=== PATIENT | male | born 1960 | race American Indian/Alaskan Native ===

== ENCOUNTER 2016-10-27 08:22 | Inpatient (IN) | payer MEDICAID ==
[2016-10-27 09:09] LABS: Hematocrit 40.3 % (35.5-45.6); Mean Corpuscular HGB Conc 32 % (32-34); Mean Corpuscular Hemoglobin 28 pg (28-32); Mean Corpuscular Volume 88 fl (84-94); Platelet Count 197 K/mm3 (140-440); Red Blood Count 4.58 M/mm3 (3.65-5.03); Red Cell Distribution Width 14.2 % (13.2-15.2); White Blood Count 4.8 K/mm3 (4.5-11.0)
--- NOTE | 2016-10-27 09:20 | XRay Report ---
PORTABLE CHEST INDICATION: Shortness of breath. COMPARISON: 10/11/2016 FINDINGS: Portable, frontal chest radiograph again demonstrates normal cardiomediastinal silhouette and clear lungs, allowing for the difference in technique. Approximately 7 mm nipple shadow again projects over the left lower lung zone. EKG leads. Stable bones. CONCLUSION: No acute chest process or significant interval change, as described. Thank you for the opportunity to participate in this patient's care.
[2016-10-27 09:29] LABS: Anion Gap 15 mmol/L; BUN/Creatinine Ratio 8.57; Blood Urea Nitrogen 6 mg/dL (9-20); Calcium 8.2 mg/dL (8.4-10.2); Carbon Dioxide 30 mmol/L (22-30); Chloride 94.8 mmol/L (98-107); Glucose 208 mg/dL (75-100); Potassium 4.1 mmol/L (3.6-5.0); Sodium 136 mmol/L (137-145)
[2016-10-27 09:42] LABS: Basophils % (Manual) 0 % (0.0-1.8); Blastocytes % (Manual) 0 %; Diff Status Complete; Poikilocytosis 1+; Stomatocytes 1+
[2016-10-27] MEDS ORDERED: PROVENTIL IH ONE (10:22)
[2016-10-27] MEDS ORDERED: ATROVENT IH ONE (10:22)
--- NOTE | 2016-10-27 10:46 | Admit Criteria Form ---
Admission Criteria Documentation: RESPIRATORY FAILURE GRG Clinical Indications for Admission to Inpatient Care (Place 'X' for any and all applicable criteria): Hospital admission is needed for appropriate care of the patient because of acute respiratory failure or insufficiency as indicated by ANY ONE of the following(1)(2)(3)(4)(5)(6)(7)(8): [X]I. Mechanical ventilation needed (acute invasive or noninvasive) [ ]II. Severe ventilation deficit as indicated by ANY ONE of the following (9) [ ]a) Respiratory acidosis (pH less than 7.32 and partial pressure of carbon dioxide greater than 40 mm Hg (5.3 kPa)) [ ]b) Partial pressure of carbon dioxide greater than 44 mm Hg (5.9 kPa ) (new) [ ]c) Airflow measurements less than 25% of predicted (eg, peak expiratory flow rate less than 100 L/minute) [ ]d) Forced vital capacity less than 15 mL/kg of ideal body weight, or 50% decrease in vital capacity from baseline [ ]III. Noncardiac pulmonary edema not resolving with rapid emergency treatment (8) [ ]IV. Severe respiratory distress as indicated by ANY ONE of the following: [ ]a) Severe tachypnea (respiratory rate greater than 30, greater than 45 for 6-month-old, greater than 60 for ) [ ]b) Severe hypoxemia (partial pressure of oxygen less than 50 mm Hg ( 6.7 kPa) on greater than 50% oxygen or partial pressure of oxygen to FIO2 ratio less than 200) [ ]c) Mental status deterioration from respiratory disease [ ]V. Airway obstruction or inadequate protection [A](10)(11) The original [employer] content created by [employer] has been revised. The portions of the content which have been revised are identified through the use of italic text or in bold, and [employer] has neither reviewed nor approved the modified material. All other unmodified content is copyright [employer]. Please see references footnoted in the original [employer] edition 2016 Admission Criteria Met: Yes
--- NOTE | 2016-10-27 11:14 | Emergency Department Report ---
HPI - General Chief Complaint: Dyspnea/Respdistress Time Seen by Provider: 10/27/16 09:31 - HPI HPI: Chief complaint: Shortness of breath and chest pain HPI: Patient is a 55-year-old -[place] male with a history of hypertension, COPD and schizophrenia who was brought in by EMS with a complaint of shortness of breath and chest pain. EMS stated that patient's pulse ox was 76% on room air upon their arrival. Patient states he ran out of his albuterol first nebulizer last night and became short of breath. Patient states he's been having chest pain substernal it's worse on breathing and coughing for the last 2 weeks. He describes it as sharp. Patient was admitted to the hospital for COPD exacerbation month ago and did not get his prescriptions filled as an outpatient. Patient lives at [facility] to his personal nursing home and he states no one has filled his prescriptions. Patient states he has a dry cough but no fever. The patient denies nausea, vomiting or diarrhea. Mode of arrival: EMS Source: Patient old chart Began: During the night Duration: Continuous Context: See above Quality: See above Severity: 7 out of 10 Improved with: See above Worsened with: See above Associated signs and symptoms: See above ED Past Medical Hx - Past Medical History Hx Hypertension: Yes Hx Heart Attack/AMI: Yes Hx Congestive Heart Failure: Yes Hx Seizures: Yes (2 wks ago) Hx Psychiatric Treatment: Yes (schizophrenia) Hx Asthma: Yes Hx COPD: Yes Additional medical history: "NERVOUS BREAKDOWN". DRUG USE - Surgical History Additional Surgical History: abd surgery (from swallowing spark plugs) - Social History Smoking Status: Current Every Day Smoker Substance Use Type: None - Medications Home Medications: Home Medications Medication Instructions Recorded Confirmed Last Taken Type Albuterol Sulfate [Ventolin HFA] 2 puff IH Q4H PRN #2 pump 10/13/16 10/27/16 Unknown Rx Ipratropium/Albuterol Sulfate 1 ampul IH TID #30 ampul.neb 10/13/16 10/27/16 Unknown Rx [Duoneb 0.5 mg-3 mg/3 ml Soln] Levofloxacin [Levaquin TAB] 750 mg PO Q24HR #6 tablet 10/13/16 10/27/16 Unknown Rx Prednisone [predniSONE 5 mg (6-Day 5 mg PO .TAPER #1 tab.ds.pk 10/13/16 Unknown Rx Pack, 21 Tabs)] ED Review of Systems ROS: Stated complaint: SHAYY Other details as noted in HPI ROS Constitutional: No fever ENT: No uri symptoms Cardiovascular: chest pain Respiratory: See HPI GI: No nausea vomiting or diarrhea : No dysuria frequency or urgency, Skin: No rash Neuro: No focal weakness or numbness Psych: Schizophrenia Fran/lymph: No edema Physical Exam - Physical Exam Vital Signs: Vital Signs 10/27/16 10/27/16 10/27/16 08:30 08:33 08:42 Temperature 98.3 F Pulse Rate 115 H Respiratory 19 Rate Blood Pressure 198/165 198/65 Blood Pressure 198/165 [Right] O2 Sat by Pulse 97 95 Oximetry 10/27/16 10/27/16 08:55 09:01 Temperature Pulse Rate 101 H 100 H Respiratory 21 23 Rate Blood Pressure 198/165 198/165 Blood Pressure [Right] O2 Sat by Pulse 95 97 Oximetry Physical Exam: GENERAL: The patient is well-developed well-nourished . Patient on BiPAP HEENT: Normocephalic. Atraumatic. Extraocular motions are intact. Patient has moist mucous membranes. NECK: Supple. No meningitic signs are noted. There is no adenopathy noted. CHEST/LUNGS: Diminished throughout with expiratory wheezes. There is no respiratory distress noted. HEART/CARDIOVASCULAR: Regular. There is no tachycardia. There is no gallop rub or murmur. ABDOMEN: Abdomen is soft, nontender. Patient has normal bowel sounds. There is no abdominal distention. SKIN: There is no rash. There is no edema. There is no diaphoresis. NEURO: The patient is awake, alert, and oriented. The patient is cooperative. The patient has no focal neurologic deficits. The patient has normal speech. MUSCULOSKELETAL: There is no tenderness or deformity. There is no limitation range of motion. There is no evidence of acute injury. ED Course Vital Signs 10/27/16 10/27/16 10/27/16 08:30 08:33 08:42 Temperature 98.3 F Pulse Rate 115 H Respiratory 19 Rate Blood Pressure 198/165 198/65 Blood Pressure 198/165 [Right] O2 Sat by Pulse 97 95 Oximetry 10/27/16 10/27/16 08:55 09:01 Temperature Pulse Rate 101 H 100 H Respiratory 21 23 Rate Blood Pressure 198/165 198/165 Blood Pressure [Right] O2 Sat by Pulse 95 97 Oximetry - Reevaluation(s) Reevaluation #1: 10/27/16 11:15 Prior to admission the patient was given albuterol, Solu-Medrol and 2 g of mag sulfate. The emergency department he was placed on BiPAP and given another nebulizer treatment. Reexamination shows the patient is still having diminished air flow and expiratory wheezes. Pulse ox 1 BiPAP is 99%. Patient will be admitted to the hospitalist. ED Medical Decision Making - Lab Data Result diagrams: 10/27/16 08:57 10/27/16 08:57 Laboratory Tests 10/27/16 08:57 Calcium 8.2 L Troponin T < 0.010 - EKG Data -: EKG Interpreted by Me EKG shows normal: sinus rhythm Rate: tachycardia (104) - EKG Data When compared to previous EKG there are: no significant change Interpretation: other (right axis, early repolarization) - Radiology Data Radiology results: report reviewed (chest x-ray shows no acute process.) Critical care attestation.: If time is entered above; I have spent that time in minutes in the direct care of this critically ill patient, excluding procedure time. ED Disposition Clinical Impression: Acute respiratory failure with hypoxia, COPD with acute exacerbation Chest pain Qualifiers: Chest pain type: unspecified Qualified Code(s): R07.9 - Chest pain, unspecified Disposition: OP ADMITTED IP TO THIS HOSP Is pt being admited?: Yes Does the pt Need Aspirin: Yes Condition: Fair Instructions: Chronic Obstructive Pulmonary Disease (ED), Chest Pain (ED) Time of Disposition: 11:09 (admit to the hospitalist)
[2016-10-27] MEDS ORDERED: ASPIRIN PO ONE (11:19)
[2016-10-27] MEDS ORDERED: PROAIR IH PRN (11:19)
[2016-10-27] MEDS ORDERED: MILK OF MAGNESIA PO PRN (11:20)
[2016-10-27] MEDS ORDERED: DULCOLAX PR PRN (11:20)
[2016-10-27] MEDS ORDERED: ZOFRAN IV PRN (11:20)
[2016-10-27] MEDS ORDERED: TYLENOL PO PRN (11:20)
[2016-10-27 12:29] LABS: Creatine Kinase MB 1.7 ng/mL (0.0-4.0)
[2016-10-27 12:30] LABS: Creatine Kinase 49 units/L (55-170)
[2016-10-27] MEDS ORDERED: D50W (25GM) IV PRN (12:31)
--- NOTE | 2016-10-27 12:37 | History and Physical Report ---
History of Present Illness Date of examination: 10/27/16 Date of admission: 10/27/16 Chief complaint: Shortness of breath History of present illness: Patient is a 55-year-old -[place] male with a history of hypertension, COPD and schizophrenia who was brought in by EMS with a complaint of shortness of breath and chest pain. The patient reports that she has been a shortness of breath has been going on for about 2 weeks. The chest and substernal rates the pain 3/10 intensity discharged nonradiating. He denies aggression associated palpitation, diaphoresis. On EMS arrival he was noted to have a pulse ox of 76% . He reports that he ran out of his nebulizer. Pupils are he's also having cough in the past 2 weeks with no production. He is a resident of [facility] home was stated that his medications were not refilled. He denies nausea, vomiting or diarrhea, fever, bright red blood per rectum, hemoptysis. On on Arrival to the ER he was placed on BiPAP. ROS Constitutional: No fever, fatigue or weight loss. Skin: No rash. Eyes: No recent vision problems or eye pain. ENT: No congestion, ear pain, or sore throat. Endocrine: No thyroid problems. Cardiovascular: Chest pain Respiratory: cough, shortness of breath, but no congestion, or wheezing. Gastrointestinal: No abdominal pain, nausea, vomiting, or diarrhea. Genitourinary: No dysuria. Musculoskeletal: No joint swelling. Neurologic: No seizures. Hematologic: No unusual bruising or bleeding. Psychiatric: No psychiatric problems, hallucinations or depression. All other systems reviewed and otherwise negative. Past History Past Medical History: CAD, COPD, heart failure, hypertension, other (asthma, schizophrenia) Past Surgical History: bowel surgery (from swallowing blocks) Social history: smoking, full code, other (lives in a personal [facility]) Family history: no significant family history Medications and Allergies Allergies Allergy/AdvReac Type Severity Reaction Status Date / Time No Known Allergies Allergy Verified 07/31/15 09:32 Home Medications Medication Instructions Recorded Confirmed Last Taken Type Albuterol Sulfate [Ventolin HFA] 2 puff IH Q4H PRN #2 pump 10/13/16 10/27/16 Unknown Rx Ipratropium/Albuterol Sulfate 1 ampul IH TID #30 ampul.neb 10/13/16 10/27/16 Unknown Rx [Duoneb 0.5 mg-3 mg/3 ml Soln] Levofloxacin [Levaquin TAB] 750 mg PO Q24HR #6 tablet 10/13/16 10/27/16 Unknown Rx Prednisone [predniSONE 5 mg (6-Day 5 mg PO .TAPER #1 tab.ds.pk 10/13/16 Unknown Rx Pack, 21 Tabs)] Active Meds: Active Medications Acetaminophen (Tylenol) 650 mg PO Q4H PRN PRN Reason: Pain MILD(1-3)/Fever >100.5/JIMENES Albuterol (Proair) 2 puff IH Q4H PRN PRN Reason: Shortness Of Breath Albuterol/Ipratropium (Duoneb 0.5 Mg-3 Mg/3 Ml Soln) 1 ampul IH TID [place] Arformoterol Tartrate (Brovana Nebu) 15 mcg IH Q12HRT [place] Bisacodyl (Dulcolax) [address] QDAY PRN PRN Reason: Constipation unrelieved by MOM Budesonide (Pulmicort) 0.5 mg IH Q12HRT [place] Dextrose (D50w (25gm)) 50 ml IV PRN PRN PRN Reason: Hypoglycemia Heparin Sodium (Porcine) (Heparin) 5,000 unit SUB-Q Q8HR [place]AWNEE Insulin Aspart (Novolog) 0 units SUB-Q ACHS [place] PRN Reason: Protocol Magnesium Hydroxide (Milk Of Magnesia) 30 ml PO Q4H PRN PRN Reason: Constipation Methylprednisolone Sodium Succinate (Solu-Medrol) 80 mg IV Q8HR [place] Ondansetron HCl (Zofran) 4 mg IV Q8H PRN PRN Reason: N/V unrelieved by Reglan Exam - Physical Exam Narrative exam: VITAL SIGNS: Reviewed. GENERAL: The patient appeared well nourished and normally developed. on BiPAP Vital signs as documented. HEAD: No signs of head trauma. EYES: Pupils are equal. Extraocular motions intact. EARS: Hearing grossly intact. MOUTH: Oropharynx is normal. NECK: No adenopathy, no JVD. CHEST: Chest with respiratory wheezes bilaterally CARDIAC: Regular rate and rhythm. S1 and S2, without murmurs, gallops, or rubs. VASCULAR: No Edema. Peripheral pulses normal and equal in all extremities. ABDOMEN: Soft, without detectable tenderness. No sign of distention. No rebound or guarding, and no masses palpated. Bowel Sounds normal. MUSCULOSKELETAL: Good range of motion of all major joints. Extremities without clubbing, cyanosis or edema. NEUROLOGIC EXAM: Alert and oriented x 3. No focal sensory or strength deficits. Speech normal. Follows commands. PSYCHIATRIC: Mood normal. SKIN: No rash or lesions. - Constitutional Vitals: Temp Pulse Resp BP Pulse Ox 98.3 F 100 H 23 198/165 97 10/27/16 08:42 10/27/16 09:01 10/27/16 09:01 10/27/16 09:01 10/27/16 09:01 Results - Labs CBC & Chem 7: 10/27/16 08:57 10/27/16 08:57 Labs: Laboratory Last Values WBC 4.8 K/mm3 (4.5-11.0) 10/27/16 08:57 RBC 4.58 M/mm3 (3.65-5.03) 10/27/16 08:57 Hgb 13.0 gm/dl (11.8-15.2) 10/27/16 08:57 Hct 40.3 % (35.5-45.6) 10/27/16 08:57 MCV 88 fl (84-94) 10/27/16 08:57 MCH 28 pg (28-32) 10/27/16 08:57 MCHC 32 % (32-34) 10/27/16 08:57 RDW 14.2 % (13.2-15.2) 10/27/16 08:57 Plt Count 197 K/mm3 (140-440) 10/27/16 08:57 Morris % (Auto) Product Management Analyst 10/27/16 08:57 Add Manual Diff Complete 10/27/16 08:57 Total Counted 100 10/27/16 08:57 Seg Neuts % (Manual) 70.0 % (40.0-70.0) 10/27/16 08:57 Band Neutrophils % 0 % 10/27/16 08:57 Lymphocytes % (Manual) 17.0 % (13.4-35.0) 10/27/16 08:57 Reactive Lymphs % (Man) 0 % 10/27/16 08:57 Monocytes % (Manual) 10.0 % (0.0-7.3) H 10/27/16 08:57 Eosinophils % (Manual) 3.0 % (0.0-4.3) 10/27/16 08:57 Basophils % (Manual) 0 % (0.0-1.8) 10/27/16 08:57 Metamyelocytes % 0 % 10/27/16 08:57 Myelocytes % 0 % 10/27/16 08:57 Promyelocytes % 0 % 10/27/16 08:57 Blast Cells % 0 % 10/27/16 08:57 Nucleated RBC % Not Reportable 10/27/16 08:57 Seg Neutrophils # Man 3.4 K/mm3 (1.8-7.7) 10/27/16 08:57 Band Neutrophils # 0.0 K/mm3 10/27/16 08:57 Lymphocytes # (Manual) 0.8 K/mm3 (1.2-5.4) L 10/27/16 08:57 Abs React Lymphs (Man) 0.0 K/mm3 10/27/16 08:57 Monocytes # (Manual) 0.5 K/mm3 (0.0-0.8) 10/27/16 08:57 Eosinophils # (Manual) 0.1 K/mm3 (0.0-0.4) 10/27/16 08:57 Basophils # (Manual) 0.0 K/mm3 (0.0-0.1) 10/27/16 08:57 Metamyelocytes # 0.0 K/mm3 10/27/16 08:57 Myelocytes # 0.0 K/mm3 10/27/16 08:57 Promyelocytes # 0.0 K/mm3 10/27/16 08:57 Blast Cells # 0.0 K/mm3 10/27/16 08:57 WBC Morphology Not Reportable 10/27/16 08:57 Hypersegmented Neuts Not Reportable 10/27/16 08:57 Hyposegmented Neuts Not Reportable 10/27/16 08:57 Hypogranular Neuts Not Reportable 10/27/16 08:57 Smudge Cells Not Reportable 10/27/16 08:57 Toxic Granulation Not Reportable 10/27/16 08:57 Toxic Vacuolation Not Reportable 10/27/16 08:57 Dohle Bodies Not Reportable 10/27/16 08:57 Pelger-Huet Anomaly Not Reportable 10/27/16 08:57 Brooks Rods Not Reportable 10/27/16 08:57 Platelet Estimate Appears normal 10/27/16 08:57 Clumped Platelets Not Reportable 10/27/16 08:57 Plt Clumps, EDTA Not Reportable 10/27/16 08:57 Large Platelets Not Reportable 10/27/16 08:57 Giant Platelets Not Reportable 10/27/16 08:57 Platelet Satelliting Not Reportable 10/27/16 08:57 Plt Morphology Comment Not Reportable 10/27/16 08:57 RBC Morphology Not Reportable 10/27/16 08:57 Dimorphic RBCs Not Reportable 10/27/16 08:57 Polychromasia Not Reportable 10/27/16 08:57 Hypochromasia Not Reportable 10/27/16 08:57 Poikilocytosis 1+ 10/27/16 08:57 Anisocytosis Not Reportable 10/27/16 08:57 Microcytosis Not Reportable 10/27/16 08:57 Macrocytosis Not Reportable 10/27/16 08:57 Spherocytes Not Reportable 10/27/16 08:57 Pappenheimer Bodies Not Reportable 10/27/16 08:57 Sickle Cells Not Reportable 10/27/16 08:57 Target Cells Not Reportable 10/27/16 08:57 Tear Drop Cells Not Reportable 10/27/16 08:57 Ovalocytes Not Reportable 10/27/16 08:57 Stomatocytes 1+ 10/27/16 08:57 Helmet Cells Not Reportable 10/27/16 08:57 Garcia-Rowland Bodies Not Reportable 10/27/16 08:57 Pacolet Rings Not Reportable 10/27/16 08:57 Santy Cells Not Reportable 10/27/16 08:57 Bite Cells Not Reportable 10/27/16 08:57 Crenated Cell Not Reportable 10/27/16 08:57 Elliptocytes Not Reportable 10/27/16 08:57 Acanthocytes (Spur) Not Reportable 10/27/16 08:57 Rouleaux Not Reportable 10/27/16 08:57 Hemoglobin C Crystals Not Reportable 10/27/16 08:57 Schistocytes Not Reportable 10/27/16 08:57 Malaria parasites Not Reportable 10/27/16 08:57 Yogi Bodies Not Reportable 10/27/16 08:57 Hem Pathologist Commnt No 10/27/16 08:57 D-Dimer 199.29 ng/mlDDU (0-234) 10/27/16 11:59 Sodium 136 mmol/L (137-145) L 10/27/16 08:57 Potassium 4.1 mmol/L (3.6-5.0) 10/27/16 08:57 Chloride 94.8 mmol/L (98-107) L 10/27/16 08:57 Carbon Dioxide 30 mmol/L (22-30) 10/27/16 08:57 Anion Gap 15 mmol/L 10/27/16 08:57 BUN 6 mg/dL (9-20) L 10/27/16 08:57 Creatinine 0.7 mg/dL (0.8-1.5) L 10/27/16 08:57 Estimated GFR > 60 ml/min 10/27/16 08:57 BUN/Creatinine Ratio 8.57 % 10/27/16 08:57 Glucose 208 mg/dL (75-100) H 10/27/16 08:57 Calcium 8.2 mg/dL (8.4-10.2) L 10/27/16 08:57 Total Creatine Kinase 49 units/L (55-170) L 10/27/16 12:03 CK-MB (CK-2) 1.7 ng/mL (0.0-4.0) 10/27/16 12:03 CK-MB (CK-2) Rel Index 3.4 (0-4) 10/27/16 12:03 Troponin T < 0.010 ng/mL (0.00-0.029) 10/27/16 12:03 - Imaging and Cardiology EKG: image reviewed (normal sinus rhythm on personal review) Chest x-ray: image reviewed (no acute pathology noted) Assessment and Plan Assessment and plan: Patient is a 55-year-old -[place] male with a history of hypertension, COPD and schizophrenia who was brought in by EMS with a complaint of shortness of breath and chest pain. The patient reports that she has been a shortness of breath has been going on for about 2 weeks. The chest and substernal rates the pain 3/10 intensity discharged nonradiating. He denies aggression associated palpitation, diaphoresis. On EMS arrival he was noted to have a pulse ox of 76% . He reports that he ran out of his nebulizer. Pupils are he's also having cough in the past 2 weeks with no production. He is a resident of [facility] was stated that his medications were not refilled. He denies nausea, vomiting or diarrhea, fever, bright red blood per rectum, hemoptysis. On on Arrival to the ER he was placed on BiPAP. * Acute and chronic hypoxic respiratory failure * Continue BiPAP, nebulizer treatment, oxygen per protocol * COPD exacerbation * Was the high-dose systemic steroids LABA, and CAROLE * Atypical chest pain likely costochondritis * Aspirin, morphine when necessary, check lipid profile, statin. Check cardiac enzymes. No indication of stresses at this time * Schizophrenia * Resume home medications once obtained * Hypertension * Controlled continue home medications * DVT and GI prophylaxis * The high probability of a clinically significant, sudden or life threatening deterioration of the [pulmonary, cardiac] system(s) required my full and direct attention, intervention and personal management. The aggregate critical care time was [35] minutes. This time is in addition to time spent performing reported procedures but includes the following: [x] Data Review and interpretation [x] Patient assessment and monitoring of vital signs [x] Documentation [x] Medication orders and management Advance Directives: Yes Plan of care discussed with patient/family: Yes
[2016-10-27] MEDS: HEPARIN SUB-Q SCH ×2 (14:07→23:03)
[2016-10-27] MEDS: DUONEB 0.5 MG-3 MG/3 ML SOLN IH SCH ×2 (14:54→21:00)
[2016-10-27] MEDS: NOVOLOG SUB-Q SCH ×2 (17:01→23:21)
[2016-10-27 18:20] LABS: Creatine Kinase MB 2.5 ng/mL (0.0-4.0)
[2016-10-27 18:21] LABS: Creatine Kinase 72 units/L (55-170)
[2016-10-28] MEDS: PULMICORT IH SCH ×3 (00:16→20:26)
[2016-10-28] MEDS: BROVANA NEBU IH SCH ×3 (00:16→20:26)
[2016-10-28] MEDS: HEPARIN SUB-Q SCH ×3 (06:34→21:40)
[2016-10-28] MEDS: NOVOLOG SUB-Q SCH ×4 (08:15→21:44)
[2016-10-28 10:38] LABS: Basophils % (Auto) 0.4 % (0.0-1.8); Eosinophils % (Auto) 0.3 % (0.0-4.3); Hematocrit 38.3 % (35.5-45.6); Hemoglobin 12.1 gm/dl (11.8-15.2); Mean Corpuscular HGB Conc 32 % (32-34); Mean Corpuscular Hemoglobin 28 pg (28-32); Mean Corpuscular Volume 88 fl (84-94); Platelet Count 196 K/mm3 (140-440); Red Blood Count 4.33 M/mm3 (3.65-5.03); Red Cell Distribution Width 14.3 % (13.2-15.2); White Blood Count 11.1 K/mm3 (4.5-11.0)
[2016-10-28 11:01] LABS: Anion Gap 16 mmol/L; BUN/Creatinine Ratio 8.33; Blood Urea Nitrogen 5 mg/dL (9-20); Calcium 8.3 mg/dL (8.4-10.2); Carbon Dioxide 31 mmol/L (22-30); Chloride 96.7 mmol/L (98-107); Glucose 218 mg/dL (75-100); Potassium 5.1 mmol/L (3.6-5.0); Sodium 139 mmol/L (137-145)
[2016-10-28] MEDS: DUONEB 0.5 MG-3 MG/3 ML SOLN IH SCH ×3 (11:17→20:26)
[2016-10-28] MEDS: ZITHROMAX PO SCH (18:20)
--- NOTE | 2016-10-28 20:23 | Progress Note ---
Assessment and Plan Assessment and plan: 1. Acute on chronic respiratory failure Secondary to COPD Treating underlying condition 2. COPD exacerbation Continue IV corticosteroids, but decreased dose; add antibiotic; continue inhaled bronchodilators, supplemental oxygen, BiPAP as needed 3. Atypical chest pain Likely costochondritis 4. Hyperglycemia Likely secondary to corticosteroid use Accu-Cheks and SSI 5. History of hypertension Not on any medications at home BP within normal limits on no meds Monitor 6. Hyperkalemia Mild, recheck in a.m. 7. Schizophrenia 8. DVT prophylaxis Heparin subcutaneous History Interval history: Complaining of difficulty breathing, short of breath Hospitalist Physical - Constitutional Vitals: Temp Pulse Resp BP Pulse Ox 98.2 F 97 H 22 102/57 95 10/28/16 15:34 10/28/16 15:34 10/28/16 15:34 10/28/16 15:34 10/28/16 15:34 General appearance: Present: mild distress, well-nourished - EENT Eyes: Present: PERRL, EOM intact. Absent: scleral icterus, conjunctival injection - Neck Neck: Present: supple, normal ROM. Absent: masses or JVD - Respiratory Respiratory effort: normal (at rest) Respiratory: bilateral: diminished, wheezing, negative: rales, rhonchi - Cardiovascular Rhythm: regular Heart Sounds: Present: S1 & S2. Absent: systolic murmur - Extremities Extremities: no ischemia - Abdominal General gastrointestinal: soft, non-tender, non-distended, normal bowel sounds - Integumentary Integumentary: Present: warm, dry. Absent: jaundice, rash - Psychiatric Psychiatric: cooperative - Neurologic Neurologic: CNII-XII intact, no focal deficits Results - Labs CBC & Chem 7: 10/28/16 10:07 10/28/16 10:07 Labs: Laboratory Last Values WBC 11.1 K/mm3 (4.5-11.0) H 10/28/16 10:07 RBC 4.33 M/mm3 (3.65-5.03) 10/28/16 10:07 Hgb 12.1 gm/dl (11.8-15.2) 10/28/16 10:07 Hct 38.3 % (35.5-45.6) 10/28/16 10:07 MCV 88 fl (84-94) 10/28/16 10:07 MCH 28 pg (28-32) 10/28/16 10:07 MCHC 32 % (32-34) 10/28/16 10:07 RDW 14.3 % (13.2-15.2) 10/28/16 10:07 Plt Count 196 K/mm3 (140-440) 10/28/16 10:07 Lymph % (Auto) 5.7 % (13.4-35.0) L 10/28/16 10:07 [place] % (Auto) 4.4 % (0.0-7.3) 10/28/16 10:07 Eos % (Auto) 0.3 % (0.0-4.3) 10/28/16 10:07 Baso % (Auto) 0.4 % (0.0-1.8) 10/28/16 10:07 Lymph # 0.6 K/mm3 (1.2-5.4) L 10/28/16 10:07 [place] # 0.5 K/mm3 (0.0-0.8) 10/28/16 10:07 Eos # 0.0 K/mm3 (0.0-0.4) 10/28/16 10:07 Baso # 0.0 K/mm3 (0.0-0.1) 10/28/16 10:07 Add Manual Diff Complete 10/27/16 08:57 Total Counted 100 10/27/16 08:57 Seg Neutrophils % 89.2 % (40.0-70.0) H 10/28/16 10:07 Seg Neuts % (Manual) 70.0 % (40.0-70.0) 10/27/16 08:57 Band Neutrophils % 0 % 10/27/16 08:57 Lymphocytes % (Manual) 17.0 % (13.4-35.0) 10/27/16 08:57 Reactive Lymphs % (Man) 0 % 10/27/16 08:57 Monocytes % (Manual) 10.0 % (0.0-7.3) H 10/27/16 08:57 Eosinophils % (Manual) 3.0 % (0.0-4.3) 10/27/16 08:57 Basophils % (Manual) 0 % (0.0-1.8) 10/27/16 08:57 Metamyelocytes % 0 % 10/27/16 08:57 Myelocytes % 0 % 10/27/16 08:57 Promyelocytes % 0 % 10/27/16 08:57 Blast Cells % 0 % 10/27/16 08:57 Nucleated RBC % Not Reportable 10/27/16 08:57 Seg Neutrophils # 9.9 K/mm3 (1.8-7.7) H 10/28/16 10:07 Seg Neutrophils # Man 3.4 K/mm3 (1.8-7.7) 10/27/16 08:57 Band Neutrophils # 0.0 K/mm3 10/27/16 08:57 Lymphocytes # (Manual) 0.8 K/mm3 (1.2-5.4) L 10/27/16 08:57 Abs React Lymphs (Man) 0.0 K/mm3 10/27/16 08:57 Monocytes # (Manual) 0.5 K/mm3 (0.0-0.8) 10/27/16 08:57 Eosinophils # (Manual) 0.1 K/mm3 (0.0-0.4) 10/27/16 08:57 Basophils # (Manual) 0.0 K/mm3 (0.0-0.1) 10/27/16 08:57 Metamyelocytes # 0.0 K/mm3 10/27/16 08:57 Myelocytes # 0.0 K/mm3 10/27/16 08:57 Promyelocytes # 0.0 K/mm3 10/27/16 08:57 Blast Cells # 0.0 K/mm3 10/27/16 08:57 WBC Morphology Not Reportable 10/27/16 08:57 Hypersegmented Neuts Not Reportable 10/27/16 08:57 Hyposegmented Neuts Not Reportable 10/27/16 08:57 Hypogranular Neuts Not Reportable 10/27/16 08:57 Smudge Cells Not Reportable 10/27/16 08:57 Toxic Granulation Not Reportable 10/27/16 08:57 Toxic Vacuolation Not Reportable 10/27/16 08:57 Dohle Bodies Not Reportable 10/27/16 08:57 Pelger-Huet Anomaly Not Reportable 10/27/16 08:57 [place] Rods Not Reportable 10/27/16 08:57 Platelet Estimate Appears normal 10/27/16 08:57 Clumped Platelets Not Reportable 10/27/16 08:57 Plt Clumps, EDTA Not Reportable 10/27/16 08:57 Large Platelets Not Reportable 10/27/16 08:57 Giant Platelets Not Reportable 10/27/16 08:57 Platelet Satelliting Not Reportable 10/27/16 08:57 Plt Morphology Comment Not Reportable 10/27/16 08:57 RBC Morphology Not Reportable 10/27/16 08:57 Dimorphic RBCs Not Reportable 10/27/16 08:57 Polychromasia Not Reportable 10/27/16 08:57 Hypochromasia Not Reportable 10/27/16 08:57 Poikilocytosis 1+ 10/27/16 08:57 Anisocytosis Not Reportable 10/27/16 08:57 Microcytosis Not Reportable 10/27/16 08:57 Macrocytosis Not Reportable 10/27/16 08:57 Spherocytes Not Reportable 10/27/16 08:57 Pappenheimer Bodies Not Reportable 10/27/16 08:57 Sickle Cells Not Reportable 10/27/16 08:57 Target Cells Not Reportable 10/27/16 08:57 Tear Drop Cells Not Reportable 10/27/16 08:57 Ovalocytes Not Reportable 10/27/16 08:57 Stomatocytes 1+ 10/27/16 08:57 Helmet Cells Not Reportable 10/27/16 08:57 [place] Bodies Not Reportable 10/27/16 08:57 [place] Rings Not Reportable 10/27/16 08:57 Santy Cells Not Reportable 10/27/16 08:57 Bite Cells Not Reportable 10/27/16 08:57 Crenated Cell Not Reportable 10/27/16 08:57 Elliptocytes Not Reportable 10/27/16 08:57 Acanthocytes (Spur) Not Reportable 10/27/16 08:57 Rouleaux Not Reportable 10/27/16 08:57 Hemoglobin C Crystals Not Reportable 10/27/16 08:57 Schistocytes Not Reportable 10/27/16 08:57 Malaria parasites Not Reportable 10/27/16 08:57 Yogi Bodies Not Reportable 10/27/16 08:57 Hem Pathologist Commnt No 10/27/16 08:57 D-Dimer 199.29 ng/mlDDU (0-234) 10/27/16 11:59 Sodium 139 mmol/L (137-145) 10/28/16 10:07 Potassium 5.1 mmol/L (3.6-5.0) H D 10/28/16 10:07 Chloride 96.7 mmol/L (98-107) L 10/28/16 10:07 Carbon Dioxide 31 mmol/L (22-30) H 10/28/16 10:07 Anion Gap 16 mmol/L 10/28/16 10:07 BUN 5 mg/dL (9-20) L 10/28/16 10:07 Creatinine 0.6 mg/dL (0.8-1.5) L 10/28/16 10:07 Estimated GFR > 60 ml/min 10/28/16 10:07 BUN/Creatinine Ratio 8.33 % 10/28/16 10:07 Glucose 218 mg/dL (75-100) H 10/28/16 10:07 POC Glucose 190 (70-105) H 10/28/16 17:03 Calcium 8.3 mg/dL (8.4-10.2) L 10/28/16 10:07 Total Creatine Kinase 72 units/L (55-170) 10/27/16 17:42 CK-MB (CK-2) 2.5 ng/mL (0.0-4.0) 10/27/16 17:42 CK-MB (CK-2) Rel Index 3.4 (0-4) 10/27/16 17:42 Troponin T < 0.010 ng/mL (0.00-0.029) 10/27/16 17:42 - Imaging and Cardiology Chest x-ray: image reviewed (no acute findings)
[2016-10-29] MEDS: HEPARIN SUB-Q SCH ×3 (05:29→22:52)
[2016-10-29] MEDS: BROVANA NEBU IH SCH ×2 (07:42→20:42)
[2016-10-29] MEDS: PULMICORT IH SCH ×2 (07:43→20:42)
[2016-10-29] MEDS: NOVOLOG SUB-Q SCH ×4 (08:41→23:19)
[2016-10-29] MEDS: ZITHROMAX PO SCH (10:00)
[2016-10-29] MEDS: DUONEB 0.5 MG-3 MG/3 ML SOLN IH SCH ×3 (10:02→20:42)
[2016-10-29 10:14] LABS: Blood Urea Nitrogen 8 mg/dL (9-20); Calcium 8.4 mg/dL (8.4-10.2); Carbon Dioxide 31 mmol/L (22-30); Chloride 91.5 mmol/L (98-107); Glucose 239 mg/dL (75-100); Potassium 4.6 mmol/L (3.6-5.0); Sodium 133 mmol/L (137-145)
[2016-10-29 10:16] LABS: Anion Gap 15 mmol/L
--- NOTE | 2016-10-29 18:29 | Progress Note ---
Assessment and Plan Assessment and plan: 1. Acute on chronic respiratory failure Secondary to COPD Treating underlying condition 2. COPD exacerbation Continue IV corticosteroids, antibiotic, continue inhaled bronchodilators, supplemental oxygen and BiPAP as needed 3. Atypical chest pain Likely costochondritis 4. Hyperglycemia Likely secondary to corticosteroid use Accu-Cheks and SSI 5. History of hypertension Not on any medications at home BP within normal limits on no meds Monitor 6. Hyperkalemia Mild Resolved with no intervention 7. Schizophrenia 8. DVT prophylaxis Heparin subcutaneous History Interval history: No significant change, still complaining of shortness of breath Hospitalist Physical - Constitutional Vitals: Temp Pulse Resp BP Pulse Ox 98.1 F 77 24 132/86 97 10/29/16 16:35 10/29/16 16:35 10/29/16 16:35 10/29/16 16:35 10/29/16 18:18 General appearance: Present: no acute distress, well-nourished - Neck Neck: Present: supple, normal ROM. Absent: masses or JVD - Respiratory Respiratory effort: normal (at rest) Respiratory: bilateral: diminished, rhonchi, wheezing - Cardiovascular Rhythm: regular Heart Sounds: Present: S1 & S2. Absent: systolic murmur - Extremities Extremities: no ischemia - Abdominal General gastrointestinal: soft, non-tender, non-distended, normal bowel sounds - Integumentary Integumentary: Present: warm, dry. Absent: jaundice, rash - Psychiatric Psychiatric: cooperative - Neurologic Neurologic: no focal deficits Results - Labs CBC & Chem 7: 10/28/16 10:07 10/29/16 09:21 Labs: Laboratory Last Values WBC 11.1 K/mm3 (4.5-11.0) H 10/28/16 10:07 RBC 4.33 M/mm3 (3.65-5.03) 10/28/16 10:07 Hgb 12.1 gm/dl (11.8-15.2) 10/28/16 10:07 Hct 38.3 % (35.5-45.6) 10/28/16 10:07 MCV 88 fl (84-94) 10/28/16 10:07 MCH 28 pg (28-32) 10/28/16 10:07 MCHC 32 % (32-34) 10/28/16 10:07 RDW 14.3 % (13.2-15.2) 10/28/16 10:07 Plt Count 196 K/mm3 (140-440) 10/28/16 10:07 Lymph % (Auto) 5.7 % (13.4-35.0) L 10/28/16 10:07 [place] % (Auto) 4.4 % (0.0-7.3) 10/28/16 10:07 Eos % (Auto) 0.3 % (0.0-4.3) 10/28/16 10:07 Baso % (Auto) 0.4 % (0.0-1.8) 10/28/16 10:07 Lymph # 0.6 K/mm3 (1.2-5.4) L 10/28/16 10:07 [place] # 0.5 K/mm3 (0.0-0.8) 10/28/16 10:07 Eos # 0.0 K/mm3 (0.0-0.4) 10/28/16 10:07 Baso # 0.0 K/mm3 (0.0-0.1) 10/28/16 10:07 Add Manual Diff Complete 10/27/16 08:57 Total Counted 100 10/27/16 08:57 Seg Neutrophils % 89.2 % (40.0-70.0) H 10/28/16 10:07 Seg Neuts % (Manual) 70.0 % (40.0-70.0) 10/27/16 08:57 Band Neutrophils % 0 % 10/27/16 08:57 Lymphocytes % (Manual) 17.0 % (13.4-35.0) 10/27/16 08:57 Reactive Lymphs % (Man) 0 % 10/27/16 08:57 Monocytes % (Manual) 10.0 % (0.0-7.3) H 10/27/16 08:57 Eosinophils % (Manual) 3.0 % (0.0-4.3) 10/27/16 08:57 Basophils % (Manual) 0 % (0.0-1.8) 10/27/16 08:57 Metamyelocytes % 0 % 10/27/16 08:57 Myelocytes % 0 % 10/27/16 08:57 Promyelocytes % 0 % 10/27/16 08:57 Blast Cells % 0 % 10/27/16 08:57 Nucleated RBC % Not Reportable 10/27/16 08:57 Seg Neutrophils # 9.9 K/mm3 (1.8-7.7) H 10/28/16 10:07 Seg Neutrophils # Man 3.4 K/mm3 (1.8-7.7) 10/27/16 08:57 Band Neutrophils # 0.0 K/mm3 10/27/16 08:57 Lymphocytes # (Manual) 0.8 K/mm3 (1.2-5.4) L 10/27/16 08:57 Abs React Lymphs (Man) 0.0 K/mm3 10/27/16 08:57 Monocytes # (Manual) 0.5 K/mm3 (0.0-0.8) 10/27/16 08:57 Eosinophils # (Manual) 0.1 K/mm3 (0.0-0.4) 10/27/16 08:57 Basophils # (Manual) 0.0 K/mm3 (0.0-0.1) 10/27/16 08:57 Metamyelocytes # 0.0 K/mm3 10/27/16 08:57 Myelocytes # 0.0 K/mm3 10/27/16 08:57 Promyelocytes # 0.0 K/mm3 10/27/16 08:57 Blast Cells # 0.0 K/mm3 10/27/16 08:57 WBC Morphology Not Reportable 10/27/16 08:57 Hypersegmented Neuts Not Reportable 10/27/16 08:57 Hyposegmented Neuts Not Reportable 10/27/16 08:57 Hypogranular Neuts Not Reportable 10/27/16 08:57 Smudge Cells Not Reportable 10/27/16 08:57 Toxic Granulation Not Reportable 10/27/16 08:57 Toxic Vacuolation Not Reportable 10/27/16 08:57 Dohle Bodies Not Reportable 10/27/16 08:57 Pelger-Huet Anomaly Not Reportable 10/27/16 08:57 Brooks Rods Not Reportable 10/27/16 08:57 Platelet Estimate Appears normal 10/27/16 08:57 Clumped Platelets Not Reportable 10/27/16 08:57 Plt Clumps, EDTA Not Reportable 10/27/16 08:57 Large Platelets Not Reportable 10/27/16 08:57 Giant Platelets Not Reportable 10/27/16 08:57 Platelet Satelliting Not Reportable 10/27/16 08:57 Plt Morphology Comment Not Reportable 10/27/16 08:57 RBC Morphology Not Reportable 10/27/16 08:57 Dimorphic RBCs Not Reportable 10/27/16 08:57 Polychromasia Not Reportable 10/27/16 08:57 Hypochromasia Not Reportable 10/27/16 08:57 Poikilocytosis 1+ 10/27/16 08:57 Anisocytosis Not Reportable 10/27/16 08:57 Microcytosis Not Reportable 10/27/16 08:57 Macrocytosis Not Reportable 10/27/16 08:57 Spherocytes Not Reportable 10/27/16 08:57 Pappenheimer Bodies Not Reportable 10/27/16 08:57 Sickle Cells Not Reportable 10/27/16 08:57 Target Cells Not Reportable 10/27/16 08:57 Tear Drop Cells Not Reportable 10/27/16 08:57 Ovalocytes Not Reportable 10/27/16 08:57 Stomatocytes 1+ 10/27/16 08:57 Helmet Cells Not Reportable 10/27/16 08:57 [place] Bodies Not Reportable 10/27/16 08:57 [place] Rings Not Reportable 10/27/16 08:57 Santy Cells Not Reportable 10/27/16 08:57 Bite Cells Not Reportable 10/27/16 08:57 Crenated Cell Not Reportable 10/27/16 08:57 Elliptocytes Not Reportable 10/27/16 08:57 Acanthocytes (Spur) Not Reportable 10/27/16 08:57 Rouleaux Not Reportable 10/27/16 08:57 Hemoglobin C Crystals Not Reportable 10/27/16 08:57 Schistocytes Not Reportable 10/27/16 08:57 Malaria parasites Not Reportable 10/27/16 08:57 Yogi Bodies Not Reportable 10/27/16 08:57 Hem Pathologist Commnt No 10/27/16 08:57 D-Dimer 199.29 ng/mlDDU (0-234) 10/27/16 11:59 Sodium 133 mmol/L (137-145) L 10/29/16 09:21 Potassium 4.6 mmol/L (3.6-5.0) 10/29/16 09:21 Chloride 91.5 mmol/L (98-107) L 10/29/16 09:21 Carbon Dioxide 31 mmol/L (22-30) H 10/29/16 09:21 Anion Gap 15 mmol/L 10/29/16 09:21 BUN 8 mg/dL (9-20) L 10/29/16 09:21 Creatinine 0.5 mg/dL (0.8-1.5) L 10/29/16 09:21 Estimated GFR > 60 ml/min 10/29/16 09:21 BUN/Creatinine Ratio 16.00 % 10/29/16 09:21 Glucose 239 mg/dL (75-100) H 10/29/16 09:21 POC Glucose 154 (70-105) H 10/29/16 12:25 Calcium 8.4 mg/dL (8.4-10.2) 10/29/16 09:21 Total Creatine Kinase 72 units/L (55-170) 10/27/16 17:42 CK-MB (CK-2) 2.5 ng/mL (0.0-4.0) 10/27/16 17:42 CK-MB (CK-2) Rel Index 3.4 (0-4) 10/27/16 17:42 Troponin T < 0.010 ng/mL (0.00-0.029) 10/27/16 17:42
[2016-10-30] MEDS: HEPARIN SUB-Q SCH ×3 (06:30→22:00)
[2016-10-30] MEDS: ZITHROMAX PO SCH (09:15)
[2016-10-30] MEDS: NOVOLOG SUB-Q SCH ×4 (09:16→22:00)
[2016-10-30] MEDS: DUONEB 0.5 MG-3 MG/3 ML SOLN IH SCH ×3 (10:09→20:58)
[2016-10-30] MEDS: PULMICORT IH SCH ×2 (10:09→20:58)
[2016-10-30] MEDS: BROVANA NEBU IH SCH ×2 (10:10→20:58)
--- NOTE | 2016-10-30 14:57 | Progress Note ---
Assessment and Plan Assessment and plan: 1. Acute on chronic respiratory failure Secondary to COPD Treating underlying condition 2. COPD exacerbation Continue IV corticosteroids, antibiotic, continue inhaled bronchodilators, supplemental oxygen and BiPAP as needed Slow improvement Start tapering CS 3. Atypical chest pain Likely costochondritis NSAIDs 4. Hyperglycemia Likely secondary to corticosteroid use Accu-Cheks and SSI 5. History of hypertension Not on any medications at home BP within normal limits on no meds Monitor 6. Hyperkalemia Mild Resolved with no intervention 7. Schizophrenia 8. DVT prophylaxis Heparin subcutaneous History Interval history: Slightly improved, still complaining of shortness of breath and difficulty breathing Hospitalist Physical - Constitutional Vitals: Temp Pulse Resp BP Pulse Ox 98.0 F 77 20 130/76 99 10/30/16 12:47 10/30/16 14:45 10/30/16 14:45 10/30/16 12:47 10/30/16 12:47 General appearance: Present: no acute distress - EENT Eyes: Present: PERRL, EOM intact. Absent: scleral icterus, conjunctival injection ENT: clear oral mucosa, poor dentition - Neck Neck: Present: supple, normal ROM. Absent: masses or JVD - Respiratory Respiratory effort: normal Respiratory: bilateral: diminished, wheezing (expiratory wheezes), negative: rales - Cardiovascular Rhythm: regular Heart Sounds: Present: S1 & S2. Absent: systolic murmur - Extremities Extremities: no ischemia - Abdominal General gastrointestinal: soft, non-tender, non-distended, normal bowel sounds - Neurologic Neurologic: CNII-XII intact, no focal deficits Results - Labs CBC & Chem 7: 10/28/16 10:07 10/29/16 09:21 Labs: Laboratory Last Values WBC 11.1 K/mm3 (4.5-11.0) H 10/28/16 10:07 RBC 4.33 M/mm3 (3.65-5.03) 10/28/16 10:07 Hgb 12.1 gm/dl (11.8-15.2) 10/28/16 10:07 Hct 38.3 % (35.5-45.6) 10/28/16 10:07 MCV 88 fl (84-94) 10/28/16 10:07 MCH 28 pg (28-32) 10/28/16 10:07 MCHC 32 % (32-34) 10/28/16 10:07 RDW 14.3 % (13.2-15.2) 10/28/16 10:07 Plt Count 196 K/mm3 (140-440) 10/28/16 10:07 Lymph % (Auto) 5.7 % (13.4-35.0) L 10/28/16 10:07 [place] % (Auto) 4.4 % (0.0-7.3) 10/28/16 10:07 Eos % (Auto) 0.3 % (0.0-4.3) 10/28/16 10:07 Baso % (Auto) 0.4 % (0.0-1.8) 10/28/16 10:07 Lymph # 0.6 K/mm3 (1.2-5.4) L 10/28/16 10:07 [place] # 0.5 K/mm3 (0.0-0.8) 10/28/16 10:07 Eos # 0.0 K/mm3 (0.0-0.4) 10/28/16 10:07 Baso # 0.0 K/mm3 (0.0-0.1) 10/28/16 10:07 Add Manual Diff Complete 10/27/16 08:57 Total Counted 100 10/27/16 08:57 Seg Neutrophils % 89.2 % (40.0-70.0) H 10/28/16 10:07 Seg Neuts % (Manual) 70.0 % (40.0-70.0) 10/27/16 08:57 Band Neutrophils % 0 % 10/27/16 08:57 Lymphocytes % (Manual) 17.0 % (13.4-35.0) 10/27/16 08:57 Reactive Lymphs % (Man) 0 % 10/27/16 08:57 Monocytes % (Manual) 10.0 % (0.0-7.3) H 10/27/16 08:57 Eosinophils % (Manual) 3.0 % (0.0-4.3) 10/27/16 08:57 Basophils % (Manual) 0 % (0.0-1.8) 10/27/16 08:57 Metamyelocytes % 0 % 10/27/16 08:57 Myelocytes % 0 % 10/27/16 08:57 Promyelocytes % 0 % 10/27/16 08:57 Blast Cells % 0 % 10/27/16 08:57 Nucleated RBC % Not Reportable 10/27/16 08:57 Seg Neutrophils # 9.9 K/mm3 (1.8-7.7) H 10/28/16 10:07 Seg Neutrophils # Man 3.4 K/mm3 (1.8-7.7) 10/27/16 08:57 Band Neutrophils # 0.0 K/mm3 10/27/16 08:57 Lymphocytes # (Manual) 0.8 K/mm3 (1.2-5.4) L 10/27/16 08:57 Abs React Lymphs (Man) 0.0 K/mm3 10/27/16 08:57 Monocytes # (Manual) 0.5 K/mm3 (0.0-0.8) 10/27/16 08:57 Eosinophils # (Manual) 0.1 K/mm3 (0.0-0.4) 10/27/16 08:57 Basophils # (Manual) 0.0 K/mm3 (0.0-0.1) 10/27/16 08:57 Metamyelocytes # 0.0 K/mm3 10/27/16 08:57 Myelocytes # 0.0 K/mm3 10/27/16 08:57 Promyelocytes # 0.0 K/mm3 10/27/16 08:57 Blast Cells # 0.0 K/mm3 10/27/16 08:57 WBC Morphology Not Reportable 10/27/16 08:57 Hypersegmented Neuts Not Reportable 10/27/16 08:57 Hyposegmented Neuts Not Reportable 10/27/16 08:57 Hypogranular Neuts Not Reportable 10/27/16 08:57 Smudge Cells Not Reportable 10/27/16 08:57 Toxic Granulation Not Reportable 10/27/16 08:57 Toxic Vacuolation Not Reportable 10/27/16 08:57 Dohle Bodies Not Reportable 10/27/16 08:57 Pelger-Huet Anomaly Not Reportable 10/27/16 08:57 [place] Rods Not Reportable 10/27/16 08:57 Platelet Estimate Appears normal 10/27/16 08:57 Clumped Platelets Not Reportable 10/27/16 08:57 Plt Clumps, EDTA Not Reportable 10/27/16 08:57 Large Platelets Not Reportable 10/27/16 08:57 Giant Platelets Not Reportable 10/27/16 08:57 Platelet Satelliting Not Reportable 10/27/16 08:57 Plt Morphology Comment Not Reportable 10/27/16 08:57 RBC Morphology Not Reportable 10/27/16 08:57 Dimorphic RBCs Not Reportable 10/27/16 08:57 Polychromasia Not Reportable 10/27/16 08:57 Hypochromasia Not Reportable 10/27/16 08:57 Poikilocytosis 1+ 10/27/16 08:57 Anisocytosis Not Reportable 10/27/16 08:57 Microcytosis Not Reportable 10/27/16 08:57 Macrocytosis Not Reportable 10/27/16 08:57 Spherocytes Not Reportable 10/27/16 08:57 Pappenheimer Bodies Not Reportable 10/27/16 08:57 Sickle Cells Not Reportable 10/27/16 08:57 Target Cells Not Reportable 10/27/16 08:57 Tear Drop Cells Not Reportable 10/27/16 08:57 Ovalocytes Not Reportable 10/27/16 08:57 Stomatocytes 1+ 10/27/16 08:57 Helmet Cells Not Reportable 10/27/16 08:57 [place] Bodies Not Reportable 10/27/16 08:57 [place] Rings Not Reportable 10/27/16 08:57 Santy Cells Not Reportable 10/27/16 08:57 Bite Cells Not Reportable 10/27/16 08:57 Crenated Cell Not Reportable 10/27/16 08:57 Elliptocytes Not Reportable 10/27/16 08:57 Acanthocytes (Spur) Not Reportable 10/27/16 08:57 Rouleaux Not Reportable 10/27/16 08:57 Hemoglobin C Crystals Not Reportable 10/27/16 08:57 Schistocytes Not Reportable 10/27/16 08:57 Malaria parasites Not Reportable 10/27/16 08:57 Yogi Bodies Not Reportable 10/27/16 08:57 Hem Pathologist Commnt No 10/27/16 08:57 D-Dimer 199.29 ng/mlDDU (0-234) 10/27/16 11:59 Sodium 133 mmol/L (137-145) L 10/29/16 09:21 Potassium 4.6 mmol/L (3.6-5.0) 10/29/16 09:21 Chloride 91.5 mmol/L (98-107) L 10/29/16 09:21 Carbon Dioxide 31 mmol/L (22-30) H 10/29/16 09:21 Anion Gap 15 mmol/L 10/29/16 09:21 BUN 8 mg/dL (9-20) L 10/29/16 09:21 Creatinine 0.5 mg/dL (0.8-1.5) L 10/29/16 09:21 Estimated GFR > 60 ml/min 10/29/16 09:21 BUN/Creatinine Ratio 16.00 % 10/29/16 09:21 Glucose 239 mg/dL (75-100) H 10/29/16 09:21 POC Glucose 198 (70-105) H 10/30/16 11:31 Calcium 8.4 mg/dL (8.4-10.2) 10/29/16 09:21 Total Creatine Kinase 72 units/L (55-170) 10/27/16 17:42 CK-MB (CK-2) 2.5 ng/mL (0.0-4.0) 10/27/16 17:42 CK-MB (CK-2) Rel Index 3.4 (0-4) 10/27/16 17:42 Troponin T < 0.010 ng/mL (0.00-0.029) 10/27/16 17:42
[2016-10-31] MEDS: HEPARIN SUB-Q SCH ×3 (06:25→21:11)
[2016-10-31] MEDS: NOVOLOG SUB-Q SCH ×4 (07:30→21:11)
[2016-10-31] MEDS: BROVANA NEBU IH SCH ×2 (08:19→20:41)
[2016-10-31] MEDS: DUONEB 0.5 MG-3 MG/3 ML SOLN IH SCH ×3 (08:19→20:41)
[2016-10-31] MEDS: PULMICORT IH SCH ×2 (08:19→20:41)
[2016-10-31] MEDS: ZITHROMAX PO SCH (09:40)
--- NOTE | 2016-10-31 16:21 | Progress Note ---
Assessment and Plan Assessment and plan: 1. Acute on chronic respiratory failure Secondary to COPD Treating underlying condition 2. COPD exacerbation Continue IV corticosteroids, antibiotic, continue inhaled bronchodilators, supplemental oxygen and BiPAP as needed Slow improvement Tapering CS 3. Atypical chest pain Likely costochondritis NSAIDs 4. Hyperglycemia Likely secondary to corticosteroid use Accu-Cheks and SSI 5. History of hypertension Not on any medications at home BP within normal limits on no meds Monitor 6. Hyperkalemia Mild Resolved with no intervention 7. Schizophrenia 8. DVT prophylaxis Heparin subcutaneous 9. 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 Absent: scleral icterus, conjunctival injection - Neck Neck: Present: supple, normal ROM. Absent: masses or JVD - Respiratory Respiratory effort: normal Respiratory: bilateral: diminished, wheezing, negative: rales - Cardiovascular Rhythm: regular Heart Sounds: Present: S1 & S2. Absent: systolic murmur - Extremities Extremities: no ischemia - Abdominal General gastrointestinal: soft, non-tender, non-distended, normal bowel sounds - Psychiatric Psychiatric: other (slow) - Neurologic Neurologic: CNII-XII intact, no focal deficits Results - Labs CBC & Chem 7: 10/28/16 10:07 10/29/16 09:21 Labs: Laboratory Last Values WBC 11.1 K/mm3 (4.5-11.0) H 10/28/16 10:07 RBC 4.33 M/mm3 (3.65-5.03) 10/28/16 10:07 Hgb 12.1 gm/dl (11.8-15.2) 10/28/16 10:07 Hct 38.3 % (35.5-45.6) 10/28/16 10:07 MCV 88 fl (84-94) 10/28/16 10:07 MCH 28 pg (28-32) 10/28/16 10:07 MCHC 32 % (32-34) 10/28/16 10:07 RDW 14.3 % (13.2-15.2) 10/28/16 10:07 Plt Count 196 K/mm3 (140-440) 10/28/16 10:07 Lymph % (Auto) 5.7 % (13.4-35.0) L 10/28/16 10:07 [place] % (Auto) 4.4 % (0.0-7.3) 10/28/16 10:07 Eos % (Auto) 0.3 % (0.0-4.3) 10/28/16 10:07 Baso % (Auto) 0.4 % (0.0-1.8) 10/28/16 10:07 Lymph # 0.6 K/mm3 (1.2-5.4) L 10/28/16 10:07 [place] # 0.5 K/mm3 (0.0-0.8) 10/28/16 10:07 Eos # 0.0 K/mm3 (0.0-0.4) 10/28/16 10:07 Baso # 0.0 K/mm3 (0.0-0.1) 10/28/16 10:07 Add Manual Diff Complete 10/27/16 08:57 Total Counted 100 10/27/16 08:57 Seg Neutrophils % 89.2 % (40.0-70.0) H 10/28/16 10:07 Seg Neuts % (Manual) 70.0 % (40.0-70.0) 10/27/16 08:57 Band Neutrophils % 0 % 10/27/16 08:57 Lymphocytes % (Manual) 17.0 % (13.4-35.0) 10/27/16 08:57 Reactive Lymphs % (Man) 0 % 10/27/16 08:57 Monocytes % (Manual) 10.0 % (0.0-7.3) H 10/27/16 08:57 Eosinophils % (Manual) 3.0 % (0.0-4.3) 10/27/16 08:57 Basophils % (Manual) 0 % (0.0-1.8) 10/27/16 08:57 Metamyelocytes % 0 % 10/27/16 08:57 Myelocytes % 0 % 10/27/16 08:57 Promyelocytes % 0 % 10/27/16 08:57 Blast Cells % 0 % 10/27/16 08:57 Nucleated RBC % Not Reportable 10/27/16 08:57 Seg Neutrophils # 9.9 K/mm3 (1.8-7.7) H 10/28/16 10:07 Seg Neutrophils # Man 3.4 K/mm3 (1.8-7.7) 10/27/16 08:57 Band Neutrophils # 0.0 K/mm3 10/27/16 08:57 Lymphocytes # (Manual) 0.8 K/mm3 (1.2-5.4) L 10/27/16 08:57 Abs React Lymphs (Man) 0.0 K/mm3 10/27/16 08:57 Monocytes # (Manual) 0.5 K/mm3 (0.0-0.8) 10/27/16 08:57 Eosinophils # (Manual) 0.1 K/mm3 (0.0-0.4) 10/27/16 08:57 Basophils # (Manual) 0.0 K/mm3 (0.0-0.1) 10/27/16 08:57 Metamyelocytes # 0.0 K/mm3 10/27/16 08:57 Myelocytes # 0.0 K/mm3 10/27/16 08:57 Promyelocytes # 0.0 K/mm3 10/27/16 08:57 Blast Cells # 0.0 K/mm3 10/27/16 08:57 WBC Morphology Not Reportable 10/27/16 08:57 Hypersegmented Neuts Not Reportable 10/27/16 08:57 Hyposegmented Neuts Not Reportable 10/27/16 08:57 Hypogranular Neuts Not Reportable 10/27/16 08:57 Smudge Cells Not Reportable 10/27/16 08:57 Toxic Granulation Not Reportable 10/27/16 08:57 Toxic Vacuolation Not Reportable 10/27/16 08:57 Dohle Bodies Not Reportable 10/27/16 08:57 Pelger-Huet Anomaly Not Reportable 10/27/16 08:57 Brooks Rods Not Reportable 10/27/16 08:57 Platelet Estimate Appears normal 10/27/16 08:57 Clumped Platelets Not Reportable 10/27/16 08:57 Plt Clumps, EDTA Not Reportable 10/27/16 08:57 Large Platelets Not Reportable 10/27/16 08:57 Giant Platelets Not Reportable 10/27/16 08:57 Platelet Satelliting Not Reportable 10/27/16 08:57 Plt Morphology Comment Not Reportable 10/27/16 08:57 RBC Morphology Not Reportable 10/27/16 08:57 Dimorphic RBCs Not Reportable 10/27/16 08:57 Polychromasia Not Reportable 10/27/16 08:57 Hypochromasia Not Reportable 10/27/16 08:57 Poikilocytosis 1+ 10/27/16 08:57 Anisocytosis Not Reportable 10/27/16 08:57 Microcytosis Not Reportable 10/27/16 08:57 Macrocytosis Not Reportable 10/27/16 08:57 Spherocytes Not Reportable 10/27/16 08:57 Pappenheimer Bodies Not Reportable 10/27/16 08:57 Sickle Cells Not Reportable 10/27/16 08:57 Target Cells Not Reportable 10/27/16 08:57 Tear Drop Cells Not Reportable 10/27/16 08:57 Ovalocytes Not Reportable 10/27/16 08:57 Stomatocytes 1+ 10/27/16 08:57 Helmet Cells Not Reportable 10/27/16 08:57 Garcia-[place] Bodies Not Reportable 10/27/16 08:57 Berkley Rings Not Reportable 10/27/16 08:57 Santy Cells Not Reportable 10/27/16 08:57 Bite Cells Not Reportable 10/27/16 08:57 Crenated Cell Not Reportable 10/27/16 08:57 Elliptocytes Not Reportable 10/27/16 08:57 Acanthocytes (Spur) Not Reportable 10/27/16 08:57 Rouleaux Not Reportable 10/27/16 08:57 Hemoglobin C Crystals Not Reportable 10/27/16 08:57 Schistocytes Not Reportable 10/27/16 08:57 Malaria parasites Not Reportable 10/27/16 08:57 Yogi Bodies Not Reportable 10/27/16 08:57 Hem Pathologist Commnt No 10/27/16 08:57 D-Dimer 199.29 ng/mlDDU (0-234) 10/27/16 11:59 Sodium 133 mmol/L (137-145) L 10/29/16 09:21 Potassium 4.6 mmol/L (3.6-5.0) 10/29/16 09:21 Chloride 91.5 mmol/L (98-107) L 10/29/16 09:21 Carbon Dioxide 31 mmol/L (22-30) H 10/29/16 09:21 Anion Gap 15 mmol/L 10/29/16 09:21 BUN 8 mg/dL (9-20) L 10/29/16 09:21 Creatinine 0.5 mg/dL (0.8-1.5) L 10/29/16 09:21 Estimated GFR > 60 ml/min 10/29/16 09:21 BUN/Creatinine Ratio 16.00 % 10/29/16 09:21 Glucose 239 mg/dL (75-100) H 10/29/16 09:21 POC Glucose 168 (70-105) H 10/31/16 12:50 Calcium 8.4 mg/dL (8.4-10.2) 10/29/16 09:21 Total Creatine Kinase 72 units/L (55-170) 10/27/16 17:42 CK-MB (CK-2) 2.5 ng/mL (0.0-4.0) 10/27/16 17:42 CK-MB (CK-2) Rel Index 3.4 (0-4) 10/27/16 17:42 Troponin T < 0.010 ng/mL (0.00-0.029) 10/27/16 17:42
[2016-11-01] MEDS: HEPARIN SUB-Q SCH ×2 (05:55→16:21)
[2016-11-01] MEDS: PULMICORT IH SCH (08:01)
[2016-11-01] MEDS: BROVANA NEBU IH SCH (08:01)
[2016-11-01] MEDS: DUONEB 0.5 MG-3 MG/3 ML SOLN IH SCH ×2 (08:01→13:23)
[2016-11-01] MEDS: NOVOLOG SUB-Q SCH ×2 (08:34→16:21)
[2016-11-01] MEDS: ZITHROMAX PO SCH (10:40)
[2016-11-01 10:46] LABS: Anion Gap 16 mmol/L; Blood Urea Nitrogen 12 mg/dL (9-20); Calcium 8.5 mg/dL (8.4-10.2); Carbon Dioxide 34 mmol/L (22-30); Chloride 96.6 mmol/L (98-107); Glucose 111 mg/dL (75-100); Potassium 4.4 mmol/L (3.6-5.0); Sodium 142 mmol/L (137-145)
--- NOTE | 2016-11-01 15:44 | Discharge Summary ---
Providers - Providers Date of Admission: 10/27/16 11:21 Date of discharge: 11/01/16 Attending physician: JAYCOB IBANEZ 11/01/16 12:16 Consult to Physician [CONS] Routine Consulting Provider: JAYCOB IBANEZ Reason For Exam: h/o schizophrenia Place consult to:: psych Notified:: psych Phone number called:: [phone] Was contact made?: Yes If yes, spoke with:: adin Time called:: 12:41 Primary care physician: FUNDRAISING SPECIALIST Hospitalization Condition: Fair Hospital course: Patient is a 55-year-old -Prydeinig male with a history of hypertension, COPD and schizophrenia who was brought in by EMS with a complaint of shortness of breath and chest pain. The patient reports that she has been a shortness of breath has been going on for about 2 weeks. The chest and substernal rates the pain 3/10 intensity discharged nonradiating. He denies aggression associated palpitation, diaphoresis. On EMS arrival he was noted to have a pulse ox of 76% . He reports that he ran out of his nebulizer. Pupils are he's also having cough in the past 2 weeks with no production. He is a resident of [facility] home was stated that his medications were not refilled. He denies nausea, vomiting or diarrhea, fever, bright red blood per rectum, hemoptysis. On on Arrival to the ER he was placed on BiPAP. Discharge Diagnosis: 1. Acute on chronic respiratory failure Secondary to COPD exacerbation, stable at baseline. 2. COPD exacerbation continue inhaled bronchodilators, supplemental oxygen 3. Atypical chest pain Likely costochondritis cont NSAIDs 4. Hyperglycemia Likely secondary to corticosteroid use 5. History of hypertension Not on any medications at home BP within normal limits on no meds 6. Hyperkalemia, Mild Resolved with no intervention 7. Schizophrenia out patient psych follow up Disposition: DC/TX HOME UNDER HOME HEALTH Time spent for discharge: 32 minutes Core Measure Documentation - Palliative Care Palliative Care/ Comfort Measures: Not Applicable - Core Measures Any of the following diagnoses?: none Exam - Physical Exam Narrative exam: General appearance: Present: no acute distress - EENT Eyes: Present: PERRL, EOM intact. Absent: scleral icterus, conjunctival injection - Neck Neck: Present: supple, normal ROM. Absent: masses or JVD - Respiratory Respiratory effort: normal Respiratory: bilateral: diminished, wheezing, negative: rales - Cardiovascular Rhythm: regular Heart Sounds: Present: S1 & S2. Absent: systolic murmur - Extremities Extremities: no ischemia - Abdominal General gastrointestinal: soft, non-tender, non-distended, normal bowel sounds - Psychiatric Psychiatric: other (slow) - Neurologic Neurologic: CNII-XII intact, no focal deficits - Constitutional Vitals: Temp Pulse Resp BP Pulse Ox 98.1 F 86 16 109/82 97 11/01/16 07:30 11/01/16 13:54 11/01/16 13:54 11/01/16 07:30 11/01/16 08:03 Plan Activity: advance as tolerated Weight Bearing Status: Non-Weight Bearing Diet: low cholesterol, low salt Follow up with: PRIMARY CARE, [Primary Care Provider] - 3-5 Days Prescriptions: Ipratropium/Albuterol Sulfate [Duoneb 0.5 mg-3 mg/3 ml Soln] 1 ampul IH TID #30 ampul.neb Levofloxacin [Levaquin TAB] 750 mg PO Q24HR #6 tablet Prednisone [predniSONE 5 mg (6-Day Pack, 21 Tabs)] 5 mg PO .TAPER #1 tab.ds.pk
[2016-11-01 16:41] VITALS: BP 129/77
== END 2016-11-01 16:44 | disposition home health service (06) | DRG 205 ==
LOC: ED 08:22 → 3A 11:21
PROVIDERS: ADMIT Internal Medicine; ATTEND Internal Medicine
PROC: 5A09457 Assistance with Respiratory Ventilation, 24-96 Consecutive Hours, Continuous Positive Airway Pressure (ICD-10-PCS; principal; 2016-10-27)
DX: M94.0 Chondrocostal junction syndrome [Tietze] (principal); J96.21 Acute and chronic respiratory failure with hypoxia; J44.1 Chronic obstructive pulmonary disease with (acute) exacerbation; R73.9 Hyperglycemia, unspecified; E87.5 Hyperkalemia; F20.9 Schizophrenia, unspecified; I50.9 Heart failure, unspecified; I11.0 Hypertensive heart disease with heart failure; J45.909 Unspecified asthma, uncomplicated; F17.210 Nicotine dependence, cigarettes, uncomplicated; I25.10 Atherosclerotic heart disease of native coronary artery without angina pectoris; I25.2 Old myocardial infarction; Z98.890 Other specified postprocedural states; Z79.899 Other long term (current) drug therapy
CPT/HCPCS: 36415; 71010; 80048; 82550; 82553; 82962; 84484; 85007; 85025; 85379; 93005; 93010; 94640; 94660; 94760; J1644; J1815; J2930

== ENCOUNTER 2017-02-28 22:43 | Inpatient (IN) | payer MEDICAID ==
[2017-02-28] MEDS ORDERED: KEPPRA 1,000 MG/NS 0.75% 100ML 1,000 MG/100 ML BAG IV ONE (23:00)
[2017-02-28] MEDS ORDERED: MAGNESIUM SULFATE 2GM/50ML 2 GM/50 ML BAG IV ONE (23:45)
[2017-02-28] MEDS ORDERED: ATROVENT IH ONE (23:45)
[2017-02-28] MEDS ORDERED: PROVENTIL IH ONE (23:45)
[2017-02-28] MEDS ORDERED: KEPPRA 1,000 MG in D5W 100 ML IV ONE (23:45)
[2017-02-28] MEDS ORDERED: NACL 0.9% 1000 ML 2,000 ML IV ONE (23:46)
--- NOTE | 2017-02-28 23:47 | Emergency Department Report ---
ED General Adult HPI - General Chief complaint: Dyspnea/Respdistress Stated complaint: SHAYY Time Seen by Provider: 02/28/17 23:38 Source: EMS (ems notes not available at time of chart dictation), RN notes reviewed, old records reviewed Mode of arrival: Stretcher Limitations: Altered Mental Status - History of Present Illness Initial comments: This is a 56-year-old male. I have evaluated him in the past. Past medical history includes COPD, multiple hospital admissions for similar symptoms, possible seizure disorder, psychiatric disease/schizophrenia. The patient is brought to the hospital by EMS for altered mental status. Unknown for how long. Unknown if any exacerbating or relieving factors. Upon arrival to the ER, the patient was breathing, wheezing, sleepy but arousable. He was protecting his airway. Fingerstick within normal limits. Afebrile rectally, rectal temperature was 97.2. Patient was started on albuterol, Atrovent, Solu-Medrol, steroids, IV fluids. There is no history of intentional overdose. Patient was somewhat combative with staff, this is likely secondary to encephalopathy, he was given 4 mg of Versed, and his behavior improved, he continued to protect his airway and saturate well. -: unknown Consistency: constant Improves with: none Worsens with: none Associated Symptoms: confusion, shortness of breath, weakness, other (per hpi) - Related Data Previous Rx's Medication Instructions Recorded Last Taken Type Albuterol Sulfate [Ventolin HFA] 2 puff IH Q4H PRN #2 pump 10/13/16 Unknown Rx Ipratropium/Albuterol Sulfate 1 ampul IH TID #30 ampul.neb 11/01/16 Unknown Rx [Duoneb 0.5 mg-3 mg/3 ml Soln] ALPRAZolam [Xanax TAB] 0.25 mg PO Q8H PRN #30 tablet 12/15/16 Unknown Rx Benztropine [Cogentin] 1 mg PO BID #30 tablet 12/15/16 Unknown Rx Divalproex ER [Depakote ER] 500 mg PO QHS #30 tablet 12/15/16 Unknown Rx Ipratropium [Atrovent NEB] 0.5 mg IH Q6HRT PRN #90 nebu 12/15/16 Unknown Rx Nicotine [Habitrol] 21 mg TD QDAY #10 patch 12/15/16 Unknown Rx Tiotropium [Spiriva] 1 puff IH Q24HRT #30 cap 12/15/16 Unknown Rx levETIRAcetam [Keppra TAB] 500 mg PO BID #60 tablet 12/15/16 Unknown Rx oxyCODONE /ACETAMINOPHEN [Percocet 1 tab PO Q6H PRN #20 tablet 12/15/16 Unknown Rx 5/325 mg] predniSONE [Deltasone] 5 mg PO QDAY #14 tablet 12/15/16 Unknown Rx predniSONE [Deltasone] 10 mg PO .TAPER #48 tab 12/15/16 Unknown Rx risperiDONE [RisperDAL] 3 mg PO QAM #30 tablet 12/15/16 Unknown Rx risperiDONE [RisperDAL] 3 mg PO QHS #30 tablet 12/15/16 Unknown Rx Allergies Allergy/AdvReac Type Severity Reaction Status Date / Time No Known Allergies Allergy Verified 07/31/15 09:32 ED Review of Systems ROS: Stated complaint: SHAYY Other details as noted in HPI Comment: Unobtainable due to pts medical conditions ED Past Medical Hx - Past Medical History Previous Medical History?: Yes Hx Hypertension: No Hx CVA: No Hx Heart Attack/AMI: No Hx Congestive Heart Failure: Yes Hx Diabetes: No Hx Deep Vein Thrombosis: No Hx Pulmonary Embolism: No Hx GERD: No Hx Liver Disease: No Hx Renal Disease: No Hx of Cancer: No Hx Sickle Cell Disease: No Hx Arthritis: No Hx Headaches / Migraines: No Hx Seizures: Yes Hx Kidney Stones: No Hx Psychiatric Treatment: Yes (schizophrenia) Hx Asthma: Yes Hx COPD: Yes Hx Tuberculosis: No Hx Dementia: No Hx HIV: No Additional medical history: "NERVOUS BREAKDOWN". DRUG USE - Surgical History Past Surgical History?: No Hx Coronary Stent: No Hx Open Heart Surgery: No Hx Pacemaker: No Hx Internal Defibrillator: No Hx Cholecystectomy: No Hx Appendectomy: No Hx Breast Surgery: No Additional Surgical History: abd surgery (from swallowing spark plugs) - Social History Smoking Status: Current Every Day Smoker Substance Use Type: Alcohol - Medications Home Medications: Home Medications Medication Instructions Recorded Confirmed Last Taken Type Albuterol Sulfate [Ventolin HFA] 2 puff IH Q4H PRN #2 pump 10/13/16 11/10/16 Unknown Rx Ipratropium/Albuterol Sulfate 1 ampul IH TID #30 ampul.neb 01/11/17 01/20/17 Unknown Rx [Duoneb 0.5 mg-3 mg/3 ml Soln] ALPRAZolam [Xanax TAB] 0.25 mg PO Q8H PRN #30 tablet 12/15/16 Unknown Rx Benztropine [Cogentin] 1 mg PO BID #30 tablet 12/15/16 Unknown Rx Divalproex ER [Depakote ER] 500 mg PO QHS #30 tablet 12/15/16 Unknown Rx Ipratropium [Atrovent NEB] 0.5 mg IH Q6HRT PRN #90 nebu 12/15/16 Unknown Rx Nicotine [Habitrol] 21 mg TD QDAY #10 patch 12/15/16 Unknown Rx Tiotropium [Spiriva] 1 puff IH Q24HRT #30 cap 12/15/16 Unknown Rx levETIRAcetam [Keppra TAB] 500 mg PO BID #60 tablet 12/15/16 Unknown Rx oxyCODONE /ACETAMINOPHEN [Percocet 1 tab PO Q6H PRN #20 tablet 12/15/16 Unknown Rx 5/325 mg] predniSONE [Deltasone] 5 mg PO QDAY #14 tablet 12/15/16 Unknown Rx predniSONE [Deltasone] 10 mg PO .TAPER #48 tab 12/15/16 Unknown Rx risperiDONE [RisperDAL] 3 mg PO QAM #30 tablet 12/15/16 Unknown Rx risperiDONE [RisperDAL] 3 mg PO QHS #30 tablet 12/15/16 Unknown Rx ED Physical Exam - General Limitations: Altered Mental Status, Physical Limitation General appearance: in no apparent distress, lethargic - Head Head exam: Present: atraumatic, normocephalic - Eye Eye exam: Present: normal appearance, PERRL - ENT ENT exam: Present: mucous membranes dry - Neck Neck exam: Present: normal inspection. Absent: tenderness, meningismus - Respiratory Respiratory exam: Present: wheezes, rhonchi. Absent: respiratory distress - Cardiovascular Cardiovascular Exam: Present: normal rhythm, tachycardia, normal heart sounds. Absent: systolic murmur, diastolic murmur, rubs, gallop - GI/Abdominal GI/Abdominal exam: Present: soft, normal bowel sounds. Absent: distended, tenderness, guarding, rebound, rigid, pulsatile mass - Rectal Rectal exam: Present: normal inspection - exam: Present: normal inspection External exam: Present: normal external exam - Extremities Exam Extremities exam: Present: normal inspection, normal capillary refill. Absent: calf tenderness - Back Exam Back exam: Present: normal inspection. Absent: tenderness, CVA tenderness (R), CVA tenderness (L), muscle spasm, paraspinal tenderness, vertebral tenderness - Neurological Exam Neurological exam: Present: altered, other (patient moves 4 extremities spontaneously. He localizes to pain.) - Psychiatric Psychiatric exam: Present: other (patient nonverbal, no indication of homicidality or suicidality) - Skin Skin exam: Present: warm, dry, intact, normal color. Absent: rash ED Course Vital Signs 02/28/17 02/28/17 02/28/17 22:50 22:57 23:07 Temperature Pulse Rate Pulse Rate [ Anterior Bilateral Throughout] Respiratory Rate Respiratory Rate [Anterior Bilateral Throughout] Blood Pressure 87/60 92/52 92/52 O2 Sat by Pulse 47 L 100 Oximetry 02/28/17 02/28/17 02/28/17 23:11 23:15 23:18 Temperature 98.2 F Pulse Rate 94 H Pulse Rate [ Anterior Bilateral Throughout] Respiratory 22 Rate Respiratory Rate [Anterior Bilateral Throughout] Blood Pressure 92/52 92/52 92/58 O2 Sat by Pulse 100 100 Oximetry 02/28/17 02/28/17 02/28/17 23:21 23:25 23:31 Temperature Pulse Rate 104 H Pulse Rate [ Anterior Bilateral Throughout] Respiratory 27 H Rate Respiratory Rate [Anterior Bilateral Throughout] Blood Pressure 92/52 92/52 92/52 O2 Sat by Pulse 100 100 100 Oximetry 02/28/17 02/28/17 02/28/17 23:35 23:41 23:45 Temperature Pulse Rate 101 H 99 H 100 H Pulse Rate [ Anterior Bilateral Throughout] Respiratory 21 20 10 L Rate Respiratory Rate [Anterior Bilateral Throughout] Blood Pressure 92/52 92/52 92/52 O2 Sat by Pulse 100 100 Oximetry 02/28/17 02/28/17 03/01/17 23:51 23:55 00:01 Temperature Pulse Rate 99 H 96 H 97 H Pulse Rate [ Anterior Bilateral Throughout] Respiratory 22 22 20 Rate Respiratory Rate [Anterior Bilateral Throughout] Blood Pressure 92/52 92/52 92/52 O2 Sat by Pulse 100 100 100 Oximetry 0503/01/17 03/01/17 00:05 00:08 00:11 Temperature Pulse Rate 99 H 93 H Pulse Rate [ 101 H Anterior Bilateral Throughout] Respiratory 19 19 Rate Respiratory 17 Rate [Anterior Bilateral Throughout] Blood Pressure 92/52 92/52 O2 Sat by Pulse 100 100 Oximetry 03/01/17 03/01/17 03/01/17 00:15 00:21 00:25 Temperature Pulse Rate 104 H 99 H 98 H Pulse Rate [ Anterior Bilateral Throughout] Respiratory 19 18 24 Rate Respiratory Rate [Anterior Bilateral Throughout] Blood Pressure 92/52 92/52 92/52 O2 Sat by Pulse 100 100 100 Oximetry 03/01/17 00:35 Temperature Pulse Rate Pulse Rate [ 102 H Anterior Bilateral Throughout] Respiratory Rate Respiratory 15 Rate [Anterior Bilateral Throughout] Blood Pressure O2 Sat by Pulse Oximetry - Reevaluation(s) Reevaluation #1: 03/01/17 00:57 Differential diagnosis: Respiratory failure, pneumonia, urinary tract infection , electrolyte derangement, intracranial injury, cervical spine injury, toxic encephalopathy, metabolic encephalopathy, multifactorial encephalopathy Assessment and plan: 56-year-old male with undifferentiated altered mental status and wheezing. ABG demonstrates hypercarbia, PaCO2 of 66, respiratory acidosis. Patient currently protecting his airway at this time. Noncontrast CT scan of the brain and cervical spine are pending. Patient is noted to be moving 4 extremities. Given that we do not have an exact timeline for patient' s symptoms, and given that he is moving 470s, he is not a TPA candidate, and I don't believe he requires an emergent neurology consult. He will be loaded with Keppra empirically, he will be given IV fluids, albuterol , Atrovent. He will be given steroids. We will obtain a CT scan of the brain and cervical spine. We will reassess after initial data points. Serum and urine toxicology studies are pending. Reevaluation #2: 03/01/17 01:[address] scan of the brain and cervical spine negative. Patient found to be hyponatremic and hypochloremic. He is also hypomagnesemic. Given clinical appearance, patient most likely has hypovolemic hyponatremia. The case is discussed with the women nurse on-call, Dr. Duffy. She recommends aggressive volume resuscitation, I agree with this. Most likely, the patient has chronic hyponatremia secondary to inadequate oral intake. She also recommends urine sodium, urine and serum osmolality, TSH and uric acid. She recommends every 6 hour basic metabolic panel. The Hospital physician, Dr. Craig, accepts the the patient to his service. - EJ/Peripheral Line Neck R Time Out Performed: Yes Indications: multiple IV sites needed Skin Cleansed in Sterile Fashion: Yes Size: 18 Dressing Placed: Tegaderm Patient Tolerated Procedure: well ED Medical Decision Making - Lab Data Result diagrams: 03/01/17 00:36 03/01/17 00:36 Vital Signs 02/28/17 02/28/17 02/28/17 22:50 22:57 23:07 Temperature Pulse Rate Pulse Rate [ Anterior Bilateral Throughout] Respiratory Rate Respiratory Rate [Anterior Bilateral Throughout] Blood Pressure 87/60 92/52 92/52 O2 Sat by Pulse 47 L 100 Oximetry 02/28/17 02/28/17 02/28/17 23:11 23:15 23:18 Temperature 98.2 F Pulse Rate 94 H Pulse Rate [ Anterior Bilateral Throughout] Respiratory 22 Rate Respiratory Rate [Anterior Bilateral Throughout] Blood Pressure 92/52 92/52 92/58 O2 Sat by Pulse 100 100 Oximetry 02/28/17 02/28/17 02/28/17 23:21 23:25 23:31 Temperature Pulse Rate 104 H Pulse Rate [ Anterior Bilateral Throughout] Respiratory 27 H Rate Respiratory Rate [Anterior Bilateral Throughout] Blood Pressure 92/52 92/52 92/52 O2 Sat by Pulse 100 100 100 Oximetry 02/28/17 02/28/17 02/28/17 23:35 23:41 23:45 Temperature Pulse Rate 101 H 99 H 100 H Pulse Rate [ Anterior Bilateral Throughout] Respiratory 21 20 10 L Rate Respiratory Rate [Anterior Bilateral Throughout] Blood Pressure 92/52 92/52 92/52 O2 Sat by Pulse 100 100 Oximetry 02/28/17 02/28/17 03/01/17 23:51 23:55 00:01 Temperature Pulse Rate 99 H 96 H 97 H Pulse Rate [ Anterior Bilateral Throughout] Respiratory 22 22 20 Rate Respiratory Rate [Anterior Bilateral Throughout] Blood Pressure 92/52 92/52 92/52 O2 Sat by Pulse 100 100 100 Oximetry 03/01/17 03/01/17 03/01/17 00:05 00:08 00:11 Temperature Pulse Rate 99 H 93 H Pulse Rate [ 101 H Anterior Bilateral Throughout] Respiratory 19 19 Rate Respiratory 17 Rate [Anterior Bilateral Throughout] Blood Pressure 92/52 92/52 O2 Sat by Pulse 100 100 Oximetry 03/01/17 03/01/17 03/01/17 00:15 00:21 00:25 Temperature Pulse Rate 104 H 99 H 98 H Pulse Rate [ Anterior Bilateral Throughout] Respiratory 19 18 24 Rate Respiratory Rate [Anterior Bilateral Throughout] Blood Pressure 92/52 92/52 92/52 O2 Sat by Pulse 100 100 100 Oximetry 03/01/17 00:35 Temperature Pulse Rate Pulse Rate [ 102 H Anterior Bilateral Throughout] Respiratory Rate Respiratory 15 Rate [Anterior Bilateral Throughout] Blood Pressure O2 Sat by Pulse Oximetry Lab Results 03/01/17 Range/Units 00:07 Urine Opiates Screen Presumptive negative Urine Methadone Screen Presumptive negative Ur Barbiturates Screen Presumptive negative Ur Phencyclidine Scrn Presumptive negative Ur Amphetamines Screen Presumptive negative U Benzodiazepines Scrn Presumptive negative Urine Cocaine Screen Presumptive negative U Marijuana (THC) Screen Presumptive negative - EKG Data -: EKG Interpreted by Me - EKG Data 03/01/17 00:59 EKG demonstrates sinus tachycardia, rightward axis, nonspecific T-wave abnormality, normal intervals, not consistent with STEMI, appears unchanged when compared to prior EKG from October 2016. - Radiology Data Radiology results: report reviewed, image reviewed interpreted by me: X-ray of the chest demonstrates hyperinflated lungs, no acute disease ct head a c spine negative Critical care attestation.: If time is entered above; I have spent that time in minutes in the direct care of this critically ill patient, excluding procedure time. ED Disposition Clinical Impression: Altered mental status, Hyponatremia Disposition: OP ADMITTED IP TO THIS HOSP Is pt being admited?: Yes Condition: Fair Referrals: PRIMARY CARE,MD [Primary Care Provider] - 3-5 Days
[2017-03-01 00:26] LABS: Urine Drugs of Abuse Note Disclamer
[2017-03-01] MEDS ORDERED: VERSED IV NR (01:00)
[2017-03-01 01:03] LABS: Hematocrit 33.1 % (35.5-45.6); Hemoglobin 11.3 gm/dl (11.8-15.2); Mean Corpuscular HGB Conc 34 % (32-34); Mean Corpuscular Hemoglobin 30 pg (28-32); Mean Corpuscular Volume 88 fl (84-94); Platelet Count 260 K/mm3 (140-440); Red Blood Count 3.74 M/mm3 (3.65-5.03); Red Cell Distribution Width 12.9 % (13.2-15.2); White Blood Count 12.6 K/mm3 (4.5-11.0)
[2017-03-01 01:08] LABS: Alanine Aminotransferase 21 units/L (7-56); Albumin 3.3 g/dL (3.9-5); Albumin/Globulin Ratio 1.9 %; Alkaline Phosphatase 56 units/L (35-129)
[2017-03-01 01:10] LABS: Bilirubin,Direct < 0.2 mg/dL (0-0.2); Bilirubin,Indirect 0.4 mg/dL
[2017-03-01 01:13] LABS: Anion Gap 15 mmol/L; Blood Urea Nitrogen 12 mg/dL (9-20); Calcium 8.3 mg/dL (8.4-10.2); Carbon Dioxide 28 mmol/L (22-30); Chloride 82.1 mmol/L (98-107); Glucose 236 mg/dL (75-100); Potassium 4.3 mmol/L (3.6-5.0); Sodium 121 mmol/L (137-145)
[2017-03-01 01:24] LABS: INR 1.01 (0.87-1.13)
[2017-03-01 01:25] LABS: Partial Thromboplastin Time 30.8 Sec. (24.2-36.6)
--- NOTE | 2017-03-01 01:44 | Cat Scan Report ---
FINAL REPORT PROCEDURE: CT HEAD/BRAIN WO CON TECHNIQUE: Computerized tomography of the head was performed without contrast material. HISTORY: ams COMPARISON: No prior studies are available for comparison. FINDINGS: Skull and scalp: Normal. Paranasal sinuses: Normal. Ventricles and subarachnoid spaces: Normal. Cerebrum: No evidence of hemorrhage, acute infarction or mass . Cerebellum and brainstem: No evidence of hemorrhage, acute infarction or mass. Vasculature: Normal. Comments: None. IMPRESSION: Normal Examination
--- NOTE | 2017-03-01 01:45 | Cat Scan Report ---
FINAL REPORT PROCEDURE: CT CERVICAL SPINE WO CON TECHNIQUE: Computerized tomography of the cervical spine was performed from the skull base to T1 without contrast material. HISTORY: ams COMPARISON: No prior studies are available for comparison. FINDINGS: The alignment of the vertebral segments is normal. There is some motion artifact on the examination. No acute fracture dislocation is seen. Mild spur formation off the vertebral bodies is identified from the C3 through the C5 vertebral levels. The spinal canal is adequate at all levels. Mild loss of disc space height identified at the C3-4 and C4-5 levels. IMPRESSION: No evidence of an acute fracture or dislocation. Mild arthritis and degenerative disc changes as described. There is motion artifact on this study this does diminish some detail..
[2017-03-01] MEDS ORDERED: NACL 0.9% 100 ML ONE ×2 (02:23→02:25)
[2017-03-01] MEDS ORDERED: NACL 0.9% 1000 ML 1,000 ML IV ONE ×2 (02:41→05:23)
[2017-03-01] MEDS ORDERED: HALDOL ONE (04:00)
[2017-03-01] MEDS ORDERED: HALDOL IM ONE (04:04)
--- NOTE | 2017-03-01 06:13 | Admit Criteria Form ---
Admission Criteria Documentation: HYPONATREMIA; HYPERNATREMIA; HYPOKALEMIA; HYPERKALEMIA; HYPOCALCEMIA; HYPERCALCEMIA Clinical Indications for Inpatient Care (Place 'X' for any and all applicable criteria): Ongoing inpatient care may be indicated for ANY ONE of the following [G](1)(2)(3 )(5): [X ]I. Hyponatremia with ANY ONE of the following: [ X]a) Sodium less than 130 mEq/L (mmol/L) (new) (6)(22) [ ]b) Sodium less than 135 mEq/L (mmol/L) with ANY ONE of the following: [ ]i) Severe medical etiology requiring inpatient management (eg, heart failure, hypovolemia) [ ]ii) Altered mental status [ ]iii) Seizures [ ]II. Hypernatremia with ANY ONE of the following: [ ]a) Sodium greater than 155 mEq/L (mmol/L) [ ]b) Sodium greater than 150 mEq/L (mmol/L) with ANY ONE of the following: [ ] i) Altered mental status [ ]ii) Seizures [ ]iii) Severe medical etiology (eg, hypovolemia, diabetes insipidus) [ ]iv) Severe weakness [ ]v) Severe medical etiology (eg, hemolysis, infection, drug overdose) [ ]III. Hypokalemia with ANY ONE of the following: [ ]a) Potassium less than 2.5 mEq/L (mmol/L) despite outpatient and emergency treatment [ ]b) Potassium less than 3.0 mEq/L (mmol/L) with ANY ONE of the following: [ ]i) Weakness [ ]ii) Cardiac abnormality (eg, arrhythmia, conduction disturbance) [ ]iii) Cardiac ischemia [ ]iv) Ileus [ ]v) Ongoing medical cause requiring inpatient management. ( e.g., acute renal wasting, SIADH) [ ]vi) Other severe symptoms [ ] IV. Hyperkalemia with ANY ONE of the following: [ ]a) Potassium greater than 6.5 mEq/L (mmol/L) [ ]b) Potassium greater than 5 mEq/L (mmol/L) with ANY ONE of the following: [ ]i) Severe ECG findings [H] [ ]ii) Acute worsening of renal failure (creatinine greater than 2.5 mg/dL (221 micromoles/L) or significant elevation for age and size) [ ] V. Hypocalcemia with ANY ONE of the following: [ ]a) Calcium less than 7 mg/dL (1.75 mmol/L) despite outpatient and emergency treatment(19) [ ]b) Calcium less than 8 mg/dL (2 mmol/L) with significant symptoms or findings; examples include: [ ]i) Cardiac abnormality (eg, arrhythmia or conduction disturbance) [ ]ii) Altered mental status [ ]iii) Seizures [ ]iv) Breathing difficulty [ ]v) Muscle spasms [ ]. Hypercalcemia with ANY ONE of the following: [ ]a) Calcium greater than 14 mg/dL (3.5 mmol/L) [ ]b) Calcium greater than 12 mg/dL (3 mmol/L) with ANY ONE of the following: [ ]i) Significant dehydration or hypovolemia as indicated by ANY ONE of the following(2): [ ]1. Clinically significant dehydration as indicated by ANY ONE of the following: [ ]A. Acute loss of weight from baseline (5% of body weight in adults, 9% in pediatric patients) [ ]B. Hemodynamic instability [ ]C. Acute renal failure [ ]D. Serum sodium greater than 150 mEq/L (mmol/L) [ ]2) Dehydration that is persistent indicated by ALL of the following: [ ]A. Oral rehydration therapy not tolerated or insufficient to adequately correct dehydration [ ]B. Appropriate intravenous treatment (eg, fluids ) does not readily correct dehydration ie, after 12 to 24 hours of treatment) [ ]ii) Significant symptoms or findings; examples include: [ ]1) Altered mental status [ ]2) Cardiac abnormality (eg, arrhythmia, conduction disturbance) [ ]3) Cardiac abnormality (eg, arrhythmia, conduction disturbance) The original [facility] content created by [employer] has been revised. The portions of the content which have been revised are identified through the use of italic text or in bold, and [facility] has neither reviewed nor approved the modified material. All other unmodified content is copyright [facility] [employer] Please see references footnoted in the original [facility] [employer] edition 2016 Admission Criteria Met: Yes
[2017-03-01] MEDS ORDERED: D50W (25GM) IV PRN (07:18)
[2017-03-01] MEDS ORDERED: DULCOLAX PR PRN (07:18)
[2017-03-01] MEDS ORDERED: TYLENOL PO PRN (07:18)
[2017-03-01] MEDS ORDERED: ZOFRAN IV PRN (07:18)
[2017-03-01] MEDS ORDERED: MILK OF MAGNESIA PO PRN (07:18)
--- NOTE | 2017-03-01 07:30 | XRay Report ---
AP CHEST: HISTORY: Shortness of breath Mild hyperinflation is unchanged since 11/08/16. The lungs are clear. Heart and mediastinal structures remain within normal limits. The bony thorax is grossly intact. IMPRESSION: Mild hyperinflation. No acute cardiopulmonary process.
[2017-03-01 07:45] LABS: Anisocytosis 1+; Basophils % (Manual) 0 % (0.0-1.8); Blastocytes % (Manual) 0 %; Diff Status Complete; Eosinophils % (Manual) 0 % (0.0-4.3); Total Cells Counted Percent 0
[2017-03-01 07:46] LABS: Platelet Estimate Consistent w Auto
--- NOTE | 2017-03-01 08:55 | Consultation ---
History of Present Illness - Reason for Consult Consult date: 03/01/17 hyponatremia - History of Present Illness This is a 56-year-old male w/ COPD, multiple hospital admissions for similar symptoms, possible seizure disorder, psychiatric disease/schizophrenia who presented to the hospital by EMS for altered mental status. Labs notable for Na 121. In the ED, patient was hypotensive w/ SBP in 70-90s. Past History Past Medical History: COPD, seizures, other (psychiatric d/o) Past Surgical History: No surgical history Social history: no significant social history Family history: no significant family history Medications and Allergies Allergies Allergy/AdvReac Type Severity Reaction Status Date / Time No Known Allergies Allergy Verified 07/31/15 09:32 Home Medications Medication Instructions Recorded Confirmed Last Taken Type Albuterol Sulfate [Ventolin HFA] 2 puff IH Q4H PRN #2 pump 10/13/16 03/01/17 Unknown Rx Ipratropium/Albuterol Sulfate 1 ampul IH TID #30 ampul.neb 11/01/16 03/01/17 Unknown Rx [Duoneb 0.5 mg-3 mg/3 ml Soln] ALPRAZolam [Xanax TAB] 0.25 mg PO Q8H PRN #30 tablet 12/15/16 03/01/17 Unknown Rx Benztropine [Cogentin] 1 mg PO BID #30 tablet 12/15/16 03/01/17 Unknown Rx Divalproex ER [Depakote ER] 500 mg PO QHS #30 tablet 12/15/16 03/01/17 Unknown Rx Ipratropium [Atrovent NEB] 0.5 mg IH Q6HRT PRN #90 nebu 12/15/16 03/01/17 Unknown Rx Nicotine [Habitrol] 21 mg TD QDAY #10 patch 12/15/16 03/01/17 Unknown Rx Tiotropium [Spiriva] 1 puff IH Q24HRT #30 cap 12/15/16 03/01/17 Unknown Rx levETIRAcetam [Keppra TAB] 500 mg PO BID #60 tablet 12/15/16 03/01/17 Unknown Rx oxyCODONE /ACETAMINOPHEN [Percocet 1 tab PO Q6H PRN #20 tablet 12/15/16 Unknown Rx 5/325 mg] predniSONE [Deltasone] 5 mg PO QDAY #14 tablet 12/15/16 03/01/17 Unknown Rx predniSONE [Deltasone] 10 mg PO .TAPER #48 tab 12/15/16 03/01/17 Unknown Rx risperiDONE [RisperDAL] 3 mg PO QAM #30 tablet 12/15/16 03/01/17 Unknown Rx risperiDONE [RisperDAL] 3 mg PO QHS #30 tablet 12/15/16 03/01/17 Unknown Rx Active Meds: Active Medications Acetaminophen (Tylenol) 650 mg PO Q4H PRN PRN Reason: Pain MILD(1-3)/Fever >100.5/JIMENES Albuterol/Ipratropium (Duoneb 0.5 Mg-3 Mg/3 Ml Soln) 1 ampul IH Q6HRT [facility] Bisacodyl (Dulcolax) 10 mg HI QDAY PRN PRN Reason: Constipation unrelieved by MOM Budesonide (Pulmicort) 0.5 mg IH Q12HRT [facility] Dextrose (D50w (25gm)) 50 ml IV PRN PRN PRN Reason: Hypoglycemia Heparin Sodium (Porcine) (Heparin) 5,000 unit SUB-Q Q12HR [facility] Magnesium Hydroxide (Milk Of Magnesia) 30 ml PO Q4H PRN PRN Reason: Constipation Methylprednisolone Sodium Succinate (Solu-Medrol) 40 mg IV Q12H [place] Midazolam HCl (Versed) 4 mg IV ONCE NR Stop: 03/01/17 23:56 Last Admin: 03/01/17 00:35 Dose: 4 mg Ondansetron HCl (Zofran) 4 mg IV Q8H PRN PRN Reason: N/V unrelieved by Reglan Review of Systems ROS unobtainable: due to mental status Exam - Vital Signs Vital signs: Vital Signs BP 87/60 02/28/17 22:50 - General Appearance General appearance: well-developed, well-nourished EENT: ATNC Respiratory: Clear to Ascultation Heart: regular, S1S2 Gastrointestinal: Present: normal. Absent: tenderness, distended Integumentary: no rash Musculoskeletal: Present: other (no edema) Psychiatric: cooperative Results - Lab Results 03/01/17 00:36 03/01/17 09:31 Most recent lab results Calcium 8.3 mg/dL (8.4-10.2) L 05/11/17 00:36 Magnesium 1.60 mg/dL (1.7-2.3) L 03/01/17 00:36 Assessment and Plan Impression: * Hypovolemic hyponatremia * COPD * Hx of seizure disorder * Psychiatric d/o Plan: * Cont NS for hydration * Steroids and nebs per primary team * Serial Na * Await pending workup
[2017-03-01] MEDS ORDERED: XANAX PO PRN (08:57)
[2017-03-01] MEDS ORDERED: NACL 0.9% 1000 ML 1,000 ML IV SCH (09:00)
[2017-03-01] MEDS: COGENTIN PO SCH (10:00)
[2017-03-01] MEDS: HEPARIN SUB-Q SCH (10:00)
[2017-03-01] MEDS: HABITROL TD SCH (10:00)
[2017-03-01] MEDS: RisperDAL PO SCH (10:00)
[2017-03-01] MEDS: KEPPRA PO SCH (10:00)
[2017-03-01] MEDS: DUONEB 0.5 MG-3 MG/3 ML SOLN IH SCH ×3 (10:51→19:46)
[2017-03-01] MEDS: PULMICORT IH SCH ×2 (10:51→19:46)
[2017-03-01] MEDS ORDERED: MAGNESIUM SULFATE IV ONE (12:50)
--- NOTE | 2017-03-01 12:51 | History and Physical Report ---
History of Present Illness Date of examination: 03/01/17 Date of admission: 03/01/17 07:19 Chief complaint: AMS History of present illness: Patient is a 56-year-old -[place] male with a history of hypertension, COPD and schizophrenia who was brought in by EMS with with AMS, and also lethargic, the patient was also significantly short of breath requiring steriods in the ER. The patient was very combatic in the ER and was given 4MG Of versed in the ER and was lethergic when I saw him and could not give me much information. Further evaluation was from charts. The patient has had multiple admissions for COPD exacerbation in the past, partly secondary to complaince issues and being homeless. Past History Past Medical History: CAD, COPD, heart failure, other (ASTHMA) Past Surgical History: bowel surgery (bowel surgery (from swallowing blocks)) Social history: smoking, other (HOMLESS) Family history: no significant family history Medications and Allergies Allergies Allergy/AdvReac Type Severity Reaction Status Date / Time No Known Allergies Allergy Verified 07/31/15 09:32 Home Medications Medication Instructions Recorded Confirmed Last Taken Type Albuterol Sulfate [Ventolin HFA] 2 puff IH Q4H PRN #2 pump 10/13/16 03/01/17 Unknown Rx Ipratropium/Albuterol Sulfate 1 ampul IH TID #30 ampul.neb 11/01/16 03/01/17 Unknown Rx [Duoneb 0.5 mg-3 mg/3 ml Soln] ALPRAZolam [Xanax TAB] 0.25 mg PO Q8H PRN #30 tablet 12/15/16 03/01/17 Unknown Rx Benztropine [Cogentin] 1 mg PO BID #30 tablet 12/15/16 03/01/17 Unknown Rx Divalproex ER [Depakote ER] 500 mg PO QHS #30 tablet 12/15/16 03/01/17 Unknown Rx Ipratropium [Atrovent NEB] 0.5 mg IH Q6HRT PRN #90 nebu 12/15/16 03/01/17 Unknown Rx Nicotine [Habitrol] 21 mg TD QDAY #10 patch 12/15/16 03/01/17 Unknown Rx Tiotropium [Spiriva] 1 puff IH Q24HRT #30 cap 12/15/16 03/01/17 Unknown Rx levETIRAcetam [Keppra TAB] 500 mg PO BID #60 tablet 12/15/16 03/01/17 Unknown Rx oxyCODONE /ACETAMINOPHEN [Percocet 1 tab PO Q6H PRN #20 tablet 12/15/16 Unknown Rx 5/325 mg] predniSONE [Deltasone] 5 mg PO QDAY #14 tablet 12/15/16 03/01/17 Unknown Rx predniSONE [Deltasone] 10 mg PO .TAPER #48 tab 12/15/16 03/01/17 Unknown Rx risperiDONE [RisperDAL] 3 mg PO QAM #30 tablet 12/15/16 03/01/17 Unknown Rx risperiDONE [RisperDAL] 3 mg PO QHS #30 tablet 12/15/16 03/01/17 Unknown Rx Active Meds: Active Medications Acetaminophen (Tylenol) 650 mg PO Q4H PRN PRN Reason: Pain MILD(1-3)/Fever >100.5/JIMENES Albuterol/Ipratropium (Duoneb 0.5 Mg-3 Mg/3 Ml Soln) 1 ampul IH Q6HRT [facility] Last Admin: 03/01/17 10:51 Dose: 1 ampul Alprazolam (Xanax) 0.25 mg PO Q8H PRN PRN Reason: Anxiety Benztropine Mesylate (Cogentin) 1 mg PO BID [place] Bisacodyl (Dulcolax) 10 mg RI QDAY PRN PRN Reason: Constipation unrelieved by MOM Budesonide (Pulmicort) 0.5 mg IH Q12HRT [facility] Last Admin: 03/01/17 10:51 Dose: 0.5 mg Dextrose (D50w (25gm)) 50 ml IV PRN PRN PRN Reason: Hypoglycemia Divalproex Sodium (Depakote Er) 500 mg PO QHS [facility] Heparin Sodium (Porcine) (Heparin) 5,000 unit SUB-Q Q12HR [facility] Sodium Chloride (Nacl 0.9% 1000 Ml) 1,000 mls @ 100 mls/hr IV DIRECT [place] Levetiracetam (Keppra) 500 mg PO BID [facility] Magnesium Hydroxide (Milk Of Magnesia) 30 ml PO Q4H PRN PRN Reason: Constipation Magnesium Sulfate (Magnesium Sulfate) 2 gm IV ONCE ONE Stop: 03/01/17 12:51 Methylprednisolone Sodium Succinate (Solu-Medrol) 40 mg IV Q12H [place] Midazolam HCl (Versed) 4 mg IV ONCE NR Stop: 03/01/17 23:56 Last Admin: 03/01/17 00:35 Dose: 4 mg Nicotine (Habitrol) 21 mg TD QDAY [place] Ondansetron HCl (Zofran) 4 mg IV Q8H PRN PRN Reason: N/V unrelieved by Reglan Risperidone (Risperdal) 3 mg PO QAM [place] Risperidone (Risperdal) 3 mg PO QHS [place] Review of Systems ROS unobtainable: due to mental status (SEDATED) Exam - Physical Exam Narrative exam: VITAL SIGNS: Reviewed. GENERAL: The patient appeared well nourished and normally developed. Disheveled , Vital signs as documented. HEAD: No signs of head trauma. EYES: Pupils are equal. Extraocular motions intact. EARS: Hearing grossly intact. MOUTH: Oropharynx is normal. NECK: No adenopathy, no JVD. CHEST: Chest with Diminshed breath sounds bilaterally. No wheezes, rales, or rhonchi. CARDIAC: Regular rate and rhythm. S1 and S2, without murmurs, gallops, or rubs. VASCULAR: No Edema. Peripheral pulses normal and equal in all extremities. ABDOMEN: Soft, without detectable tenderness. No sign of distention. No rebound or guarding, and no masses palpated. Bowel Sounds normal. MUSCULOSKELETAL: Good range of motion of all major joints. Extremities without clubbing, cyanosis or edema. NEUROLOGIC EXAM: Awake, lethergic, No focal sensory or strength deficits. PSYCHIATRIC: Mood normal. SKIN: No rash or lesions. - Constitutional Vitals: Temp Pulse Resp BP Pulse Ox 98.2 F 90 20 154/65 100 03/01/17 09:30 03/01/17 11:02 03/01/17 11:02 03/01/17 09:30 03/01/17 10:50 Results - Labs CBC & Chem 7: 03/01/17 00:36 03/01/17 09:31 Labs: Laboratory Last Values WBC 12.6 K/mm3 (4.5-11.0) H 03/01/17 00:36 RBC 3.74 M/mm3 (3.65-5.03) 03/01/17 00:36 Hgb 11.3 gm/dl (11.8-15.2) L 03/01/17 00:36 Hct 33.1 % (35.5-45.6) L 03/01/17 00:36 MCV 88 fl (84-94) 05 00:36 MCH 30 pg (28-32) 05 00:36 MCHC 34 % (32-34) 03/01/17 00:36 RDW 12.9 % (13.2-15.2) L 05 00:36 Plt Count 260 K/mm3 (140-440) 05 00:36 Add Manual Diff Complete 05 00:36 Total Counted 100 05 00:36 Seg Neutrophils % [employer]urable Medical Equipment Rep[employer]r 03/01/17 00:36 Seg Neuts % (Manual) 12.0 % (40.0-70.0) L 03/01/17 00:36 Band Neutrophils % 84.0 % 03/01/17 00:36 Lymphocytes % (Manual) 4.0 % (13.4-35.0) L 05 00:36 Reactive Lymphs % (Man) 0 % 05 00:36 Monocytes % (Manual) 0 % (0.0-7.3) 03/01/17 00:36 Eosinophils % (Manual) 0 % (0.0-4.3) 03/01/17 00:36 Basophils % (Manual) 0 % (0.0-1.8) 03/01/17 00:36 Metamyelocytes % 0 % 03/01/17 00:36 Myelocytes % 0 % 03/01/17 00:36 Promyelocytes % 0 % 03/01/17 00:36 Blast Cells % 0 % 03/01/17 00:36 Nucleated RBC % Not Reportable 03/01/17 00:36 Seg Neutrophils # Man 1.5 K/mm3 (1.8-7.7) L 03/01/17 00:36 Band Neutrophils # 10.6 K/mm3 03/01/17 00:36 Lymphocytes # (Manual) 0.5 K/mm3 (1.2-5.4) L 03/01/17 00:36 Abs React Lymphs (Man) 0.0 K/mm3 03/01/17 00:36 Monocytes # (Manual) 0.0 K/mm3 (0.0-0.8) 03/01/17 00:36 Eosinophils # (Manual) 0.0 K/mm3 (0.0-0.4) 03/01/17 00:36 Basophils # (Manual) 0.0 K/mm3 (0.0-0.1) 03/01/17 00:36 Metamyelocytes # 0.0 K/mm3 03/01/17 00:36 Myelocytes # 0.0 K/mm3 03/01/17 00:36 Promyelocytes # 0.0 K/mm3 03/01/17 00:36 Blast Cells # 0.0 K/mm3 03/01/17 00:36 WBC Morphology Not Reportable 03/01/17 00:36 Hypersegmented Neuts Not Reportable 03/01/17 00:36 Hyposegmented Neuts Not Reportable 03/01/17 00:36 Hypogranular Neuts Not Reportable 03/01/17 00:36 Smudge Cells Not Reportable 03/01/17 00:36 Toxic Granulation Not Reportable 03/01/17 00:36 Toxic Vacuolation Not Reportable 03/01/17 00:36 Dohle Bodies Not Reportable 03/01/17 00:36 Pelger-Huet Anomaly Not Reportable 03/01/17 00:36 Brooks Rods Not Reportable 03/01/17 00:36 Platelet Estimate Consistent w auto 03/01/17 00:36 Clumped Platelets Not Reportable 03/01/17 00:36 Plt Clumps, EDTA Not Reportable 03/01/17 00:36 Large Platelets Not Reportable 03/01/17 00:36 Giant Platelets Not Reportable 03/01/17 00:36 Platelet Satelliting Not Reportable 03/01/17 00:36 Plt Morphology Comment Not Reportable 03/01/17 00:36 RBC Morphology Not Reportable 03/01/17 00:36 Dimorphic RBCs Not Reportable 03/01/17 00:36 Polychromasia Not Reportable 03/01/17 00:36 Hypochromasia Not Reportable 03/01/17 00:36 Poikilocytosis Not Reportable 03/01/17 00:36 Anisocytosis 1+ 03/01/17 00:36 Microcytosis Not Reportable 03/01/17 00:36 Macrocytosis Not Reportable 03/01/17 00:36 Spherocytes Not Reportable 03/01/17 00:36 Pappenheimer Bodies Not Reportable 03/01/17 00:36 Sickle Cells Not Reportable 03/01/17 00:36 Target Cells Not Reportable 03/01/17 00:36 Tear Drop Cells Not Reportable 03/01/17 00:36 Ovalocytes Not Reportable 03/01/17 00:36 Helmet Cells Not Reportable 03/01/17 00:36 [place] Bodies Not Reportable 03/01/17 00:36 Robinson Rings Not Reportable 03/01/17 00:36 [place] Cells Not Reportable 03/01/17 00:36 Bite Cells Not Reportable 03/01/17 00:36 Crenated Cell Not Reportable 03/01/17 00:36 Elliptocytes Not Reportable 03/01/17 00:36 Acanthocytes (Spur) Not Reportable 03/01/17 00:36 Rouleaux Not Reportable 03/01/17 00:36 Hemoglobin C Crystals Not Reportable 03/01/17 00:36 Schistocytes Not Reportable 03/01/17 00:36 Malaria parasites Not Reportable 03/01/17 00:36 Yogi Bodies Not Reportable 03/01/17 00:36 Hem Pathologist Commnt No 03/01/17 00:36 PT 13.2 Sec. (12.2-14.9) 03/01/17 00:36 INR 1.01 (0.87-1.13) 03/01/17 00:36 APTT 30.8 Sec. (24.2-36.6) 03/01/17 00:36 Sodium 130 mmol/L (137-145) L D 03/01/17 09:31 Potassium 4.3 mmol/L (3.6-5.0) 03/01/17 00:36 Chloride 82.1 mmol/L (98-107) L 03/01/17 00:36 Carbon Dioxide 28 mmol/L (22-30) 03/01/17 00:36 Anion Gap 15 mmol/L 03/01/17 00:36 BUN 12 mg/dL (9-20) 03/01/17 00:36 Creatinine 0.6 mg/dL (0.8-1.5) L 03/01/17 00:36 Estimated GFR > 60 ml/min 03/01/17 00:36 BUN/Creatinine Ratio 20.00 % 03/01/17 00:36 Glucose 236 mg/dL (75-100) H 03/01/17 00:36 Osmolality 254 Mosm/kg 03/01/17 04:03 Lactic Acid 1.00 mmol/L (0.7-2.0) 03/01/17 00:36 Uric Acid 4.4 mg/dL (3.5-7.6) 03/01/17 04:03 Calcium 8.3 mg/dL (8.4-10.2) L 03/01/17 00:36 Magnesium 1.60 mg/dL (1.7-2.3) L 03/01/17 00:36 Total Bilirubin 0.60 mg/dL (0.1-1.2) 03/01/17 00:36 Direct Bilirubin < 0.2 mg/dL (0-0.2) 03/01/17 00:36 Indirect Bilirubin 0.4 mg/dL 03/01/17 00:36 AST 21 units/L (5-40) 03/01/17 00:36 ALT 21 units/L (7-56) 03/01/17 00:36 Alkaline Phosphatase 56 units/L (35-129) 03/01/17 00:36 Ammonia 35.0 umol/L (25-60) 03/01/17 00:36 Troponin T < 0.010 ng/mL (0.00-0.029) 03/01/17 00:36 NT-Pro-B Natriuret Pep 157.1 pg/mL (0-900) 03/01/17 00:36 Total Protein 5.0 g/dL (6.3-8.2) L 03/01/17 00:36 Albumin 3.3 g/dL (3.9-5) L 03/01/17 00:36 Albumin/Globulin Ratio 1.9 % 03/01/17 00:36 TSH 0.433 mlU/mL (0.270-4.200) 03/01/17 04:03 Salicylates < 0.3 mg/dL (2.8-20.0) L 03/01/17 00:36 Urine Opiates Screen Presumptive negative 03/01/17 00:07 Urine Methadone Screen Presumptive negative 03/01/17 00:07 Acetaminophen < 15.0 ug/mL (10.0-30.0) 03/01/17 00:36 Ur Barbiturates Screen Presumptive negative 03/01/17 00:07 Ur Phencyclidine Scrn Presumptive negative 03/01/17 00:07 Ur Amphetamines Screen Presumptive negative 03/01/17 00:07 U Benzodiazepines Scrn Presumptive negative 03/01/17 00:07 Urine Cocaine Screen Presumptive negative 03/01/17 00:07 U Marijuana (THC) Screen Presumptive negative 03/01/17 00:07 Drugs of Abuse Note Disclamer 03/01/17 00:07 Plasma/Serum Alcohol < 0.01 gm% (0-0.07) 03/01/17 00:36 - Imaging and Cardiology Chest x-ray: image reviewed (mild hyperinflation) Assessment and Plan Assessment and plan: Patient is a 56-year-old -[place] male with a history of hypertension, COPD and schizophrenia who was brought in by EMS with with AMS, and also lethargic, the patient was also significantly short of breath requiring steroids in the ER. The patient was very combatic in the ER and was given 4MG Of versed in the ER and was lethergic when I saw him and could not give me much information. Further evaluation was from charts. The patient has had multiple admissions for COPD exacerbation in the past, partly secondary to compliance issues and being homeless. * Idiopathic Encephalopathy * Multifactorial in etiology * Leukocytosis * ?reactive. No overt evidence of infection. Will monitor. * Acute and chronic hypoxic respiratory failure * PRN BiPAP, nebulizer treatment, oxygen per protocol * COPD exacerbation * Appears to be improving, continue neb treatment * Schizophrenia * Resume home medications * Hypertension * resume home medications. * Hypomagnesmia * Replace * Hyponatremia * Gentle hydration * monitor serial sodium level * Mild protein calorie malnutrition * Nutrition consult * Anemia * stable * DVT and GI prophylaxis * No family member present, case management Advance Directives: Yes Plan of care discussed with patient/family: Yes
[2017-03-01] MEDS ORDERED: MAGNESIUM SULFATE 1 GM in NACL 0.9% 50 ML IV ONE (14:00)
[2017-03-01] MEDS ORDERED: ATIVAN IV PRN (16:14)
[2017-03-02] MEDS: COGENTIN PO SCH ×3 (00:46→23:30)
[2017-03-02] MEDS: RisperDAL PO SCH ×3 (00:47→23:29)
[2017-03-02] MEDS: KEPPRA PO SCH ×3 (00:47→23:30)
[2017-03-02] MEDS: HEPARIN SUB-Q SCH ×3 (00:49→23:33)
[2017-03-02] MEDS: DUONEB 0.5 MG-3 MG/3 ML SOLN IH SCH ×4 (02:34→20:53)
[2017-03-02] MEDS: PULMICORT IH SCH ×2 (09:00→20:53)
--- NOTE | 2017-03-02 09:33 | Progress Note ---
Assessment and Plan Assessment and plan: Acute on chronic respiratory failure due to COPD exacerbation. He is on supplemental Oxygen. COPD exacerbation. Solu-Medrol IV, DuoNeb. Supplemental Oxygen Hyponatremia. Was 121 on admission, now 130. Continue Normal saline. For repeat sodium level today. Nephrology following. Hypomagnesemia. Replaced. To repeat Hypertension. Blood Pressure stable Schizophrenia. Continue Risperdal Seizure disorder on Keppra DVT prophylaxis with Lovenox CODE STATUS History Interval history: Less shortness of breath, No chest pain Hospitalist Physical - Physical exam Narrative exam: Gen appearance: Not in acute distress, HEENT: Normocephalic, atraumatic Lungs : Bilateral rhonchi, No crackles or wheeze Heart :S1-S2 regular, no murmurs, rubs or gallop Abdomen: soft, non tender, non-distended,normal bowel sounds Extremities:no edema no clubbing or cyanosis, Neuro: Awake, alert, oriented 3, no focal neurologic signs Psych:calm, has schizophrenia - Constitutional Vitals: Temp Pulse Resp BP Pulse Ox 97.6 F 124 H 20 123/72 97 03/02/17 08:00 03/02/17 08:00 03/02/17 08:00 03/02/17 08:00 03/02/17 08:00 Results - Labs CBC & Chem 7: 03/01/17 00:36 03/01/17 09:31 Labs: Laboratory Last Values WBC 12.6 K/mm3 (4.5-11.0) H 03/01/17 00:36 RBC 3.74 M/mm3 (3.65-5.03) 03/01/17 00:36 Hgb 11.3 gm/dl (11.8-15.2) L 03/01/17 00:36 Hct 33.1 % (35.5-45.6) L 03/01/17 00:36 MCV 88 fl (84-94) 03/01/17 00:36 MCH 30 pg (28-32) 03/01/17 00:36 MCHC 34 % (32-34) 03/01/17 00:36 RDW 12.9 % (13.2-15.2) L 03/01/17 00:36 Plt Count 260 K/mm3 (140-440) 03/01/17 00:36 Add Manual Diff Complete 03/01/17 00:36 Total Counted 100 03/01/17 00:36 Seg Neutrophils % Marina Manager 03/01/17 00:36 Seg Neuts % (Manual) 12.0 % (40.0-70.0) L 03/01/17 00:36 Band Neutrophils % 84.0 % 03/01/17 00:36 Lymphocytes % (Manual) 4.0 % (13.4-35.0) L 03/01/17 00:36 Reactive Lymphs % (Man) 0 % 03/01/17 00:36 Monocytes % (Manual) 0 % (0.0-7.3) 03/01/17 00:36 Eosinophils % (Manual) 0 % (0.0-4.3) 03/01/17 00:36 Basophils % (Manual) 0 % (0.0-1.8) 03/01/17 00:36 Metamyelocytes % 0 % 03/01/17 00:36 Myelocytes % 0 % 03/01/17 00:36 Promyelocytes % 0 % 03/01/17 00:36 Blast Cells % 0 % 03/01/17 00:36 Nucleated RBC % Not Reportable 03/01/17 00:36 Seg Neutrophils # Man 1.5 K/mm3 (1.8-7.7) L 03/01/17 00:36 Band Neutrophils # 10.6 K/mm3 03/01/17 00:36 Lymphocytes # (Manual) 0.5 K/mm3 (1.2-5.4) L 03/01/17 00:36 Abs React Lymphs (Man) 0.0 K/mm3 03/01/17 00:36 Monocytes # (Manual) 0.0 K/mm3 (0.0-0.8) 03/01/17 00:36 Eosinophils # (Manual) 0.0 K/mm3 (0.0-0.4) 03/01/17 00:36 Basophils # (Manual) 0.0 K/mm3 (0.0-0.1) 03/01/17 00:36 Metamyelocytes # 0.0 K/mm3 03/01/17 00:36 Myelocytes # 0.0 K/mm3 03/01/17 00:36 Promyelocytes # 0.0 K/mm3 03/01/17 00:36 Blast Cells # 0.0 K/mm3 03/01/17 00:36 WBC Morphology Not Reportable 03/01/17 00:36 Hypersegmented Neuts Not Reportable 03/01/17 00:36 Hyposegmented Neuts Not Reportable 03/01/17 00:36 Hypogranular Neuts Not Reportable 03/01/17 00:36 Smudge Cells Not Reportable 03/01/17 00:36 Toxic Granulation Not Reportable 03/01/17 00:36 Toxic Vacuolation Not Reportable 03/01/17 00:36 Dohle Bodies Not Reportable 03/01/17 00:36 Pelger-Huet Anomaly Not Reportable 03/01/17 00:36 Brooks Rods Not Reportable 03/01/17 00:36 Platelet Estimate Consistent w auto 03/01/17 00:36 Clumped Platelets Not Reportable 03/01/17 00:36 Plt Clumps, EDTA Not Reportable 03/01/17 00:36 Large Platelets Not Reportable 03/01/17 00:36 Giant Platelets Not Reportable 03/01/17 00:36 Platelet Satelliting Not Reportable 03/01/17 00:36 Plt Morphology Comment Not Reportable 03/01/17 00:36 RBC Morphology Not Reportable 03/01/17 00:36 Dimorphic RBCs Not Reportable 03/01/17 00:36 Polychromasia Not Reportable 03/01/17 00:36 Hypochromasia Not Reportable 03/01/17 00:36 Poikilocytosis Not Reportable 03/01/17 00:36 Anisocytosis 1+ 03/01/17 00:36 Microcytosis Not Reportable 03/01/17 00:36 Macrocytosis Not Reportable 03/01/17 00:36 Spherocytes Not Reportable 03/01/17 00:36 Pappenheimer Bodies Not Reportable 03/01/17 00:36 Sickle Cells Not Reportable 03/01/17 00:36 Target Cells Not Reportable 03/01/17 00:36 Tear Drop Cells Not Reportable 03/01/17 00:36 Ovalocytes Not Reportable 03/01/17 00:36 Helmet Cells Not Reportable 03/01/17 00:36 Garcia-Morrison Bodies Not Reportable 03/01/17 00:36 Sandwich Rings Not Reportable 03/01/17 00:36 Santy Cells Not Reportable 03/01/17 00:36 Bite Cells Not Reportable 03/01/17 00:36 Crenated Cell Not Reportable 03/01/17 00:36 Elliptocytes Not Reportable 03/01/17 00:36 Acanthocytes (Spur) Not Reportable 03/01/17 00:36 Rouleaux Not Reportable 03/01/17 00:36 Hemoglobin C Crystals Not Reportable 03/01/17 00:36 Schistocytes Not Reportable 03/01/17 00:36 Malaria parasites Not Reportable 03/01/17 00:36 Yogi Bodies Not Reportable 03/01/17 00:36 Hem Pathologist Commnt No 03/01/17 00:36 PT 13.2 Sec. (12.2-14.9) 03/01/17 00:36 INR 1.01 (0.87-1.13) 03/01/17 00:36 APTT 30.8 Sec. (24.2-36.6) 03/01/17 00:36 Sodium 130 mmol/L (137-145) L D 03/01/17 09:31 Potassium 4.3 mmol/L (3.6-5.0) 03/01/17 00:36 Chloride 82.1 mmol/L (98-107) L 03/01/17 00:36 Carbon Dioxide 28 mmol/L (22-30) 03/01/17 00:36 Anion Gap 15 mmol/L 03/01/17 00:36 BUN 12 mg/dL (9-20) 03/01/17 00:36 Creatinine 0.6 mg/dL (0.8-1.5) L 03/01/17 00:36 Estimated GFR > 60 ml/min 03/01/17 00:36 BUN/Creatinine Ratio 20.00 % 03/01/17 00:36 Glucose 236 mg/dL (75-100) H 03/01/17 00:36 Osmolality 254 Mosm/kg 03/01/17 04:03 Lactic Acid 1.00 mmol/L (0.7-2.0) 03/01/17 00:36 Uric Acid 4.4 mg/dL (3.5-7.6) 03/01/17 04:03 Calcium 8.3 mg/dL (8.4-10.2) L 03/01/17 00:36 Magnesium 1.60 mg/dL (1.7-2.3) L 03/01/17 00:36 Total Bilirubin 0.60 mg/dL (0.1-1.2) 03/01/17 00:36 Direct Bilirubin < 0.2 mg/dL (0-0.2) 03/01/17 00:36 Indirect Bilirubin 0.4 mg/dL 03/01/17 00:36 AST 21 units/L (5-40) 03/01/17 00:36 ALT 21 units/L (7-56) 03/01/17 00:36 Alkaline Phosphatase 56 units/L (35-129) 03/01/17 00:36 Ammonia 35.0 umol/L (25-60) 03/01/17 00:36 Troponin T < 0.010 ng/mL (0.00-0.029) 03/01/17 00:36 NT-Pro-B Natriuret Pep 157.1 pg/mL (0-900) 03/01/17 00:36 Total Protein 5.0 g/dL (6.3-8.2) L 03/01/17 00:36 Albumin 3.3 g/dL (3.9-5) L 03/01/17 00:36 Albumin/Globulin Ratio 1.9 % 03/01/17 00:36 TSH 0.433 mlU/mL (0.270-4.200) 03/01/17 04:03 Salicylates < 0.3 mg/dL (2.8-20.0) L 03/01/17 00:36 Urine Opiates Screen Presumptive negative 03/01/17 00:07 Urine Methadone Screen Presumptive negative 03/01/17 00:07 Acetaminophen < 15.0 ug/mL (10.0-30.0) 03/01/17 00:36 Ur Barbiturates Screen Presumptive negative 03/01/17 00:07 Ur Phencyclidine Scrn Presumptive negative 03/01/17 00:07 Ur Amphetamines Screen Presumptive negative 03/01/17 00:07 U Benzodiazepines Scrn Presumptive negative 03/01/17 00:07 Urine Cocaine Screen Presumptive negative 03/01/17 00:07 U Marijuana (THC) Screen Presumptive negative 03/01/17 00:07 Drugs of Abuse Note Disclamer 03/01/17 00:07 Plasma/Serum Alcohol < 0.01 gm% (0-0.07) 03/01/17 00:36
--- NOTE | 2017-03-02 09:50 | Progress Note ---
Assessment and Plan Impression: * Hypovolemic hyponatremia * COPD * Hx of seizure disorder * Psychiatric d/o Plan: * AM labs are pending * Cont NS for hydration * Steroids and nebs per primary team Subjective Date of service: 03/02/17 Interval history: Patient has no complaints today Objective - Vital Signs Vital signs: Vital Signs - 12hr 03/01/17 03/02/17 03/02/17 22:00 00:00 02:34 Temperature 97.9 F Pulse Rate [ 99 H Anterior Bilateral Throughout] Pulse Rate [ 102 H 102 H Left Radial] Respiratory 22 22 Rate Respiratory 20 Rate [Anterior Bilateral Throughout] Blood Pressure 101/67 [Left Arm] O2 Sat by Pulse 97 97 Oximetry 03/02/17 03/02/17 02:45 08:00 Temperature 97.6 F Pulse Rate [ 102 H Anterior Bilateral Throughout] Pulse Rate [ 124 H Left Radial] Respiratory 20 Rate Respiratory 22 Rate [Anterior Bilateral Throughout] Blood Pressure 123/72 [Left Arm] O2 Sat by Pulse 97 Oximetry - General Appearance General appearance: well-developed, well-nourished EENT: ATNC Respiratory: Present: Clear to Ascultation Cardiology: regular, S1S2 Gastrointestinal: no tenderness, no distended Psychiatric: cooperative - Lab 03/01/17 00:36 03/01/17 09:31 Most recent lab results Calcium 8.3 mg/dL (8.4-10.2) L 03/01/17 00:36 Magnesium 1.60 mg/dL (1.7-2.3) L 03/01/17 00:36
[2017-03-02] MEDS: HABITROL TD SCH (10:28)
--- NOTE | 2017-03-02 12:48 | Consultation ---
History of Present Illness - Reason for Consult Consult date: 03/02/17 Reason for consult: psychiatric evaluation - Chief Complaint Chief complaint: "Cigarettes,COPD, lung cancer" 56 year old black male seen for psychiatric evaluation. He presented to [facility] for respiratory distress. During a recent admission, he was agitated and destructive to property. He states he does not have that problem now. He was sent to [facility] and somehow went to [place] following that. He endorses AH and states "They're not bad now." He denies current or recent SI or HI. He denies illicit drug use. He reports occasionally drinking a beer out of the garbage. He states he is scared "since I swallowed the spark plugs." He also attributes ringing in his ears to purposefully putting food in his ears. He is demanding but not aggressive or threatening at this time. Medications and Allergies Allergies Allergy/AdvReac Type Severity Reaction Status Date / Time No Known Allergies Allergy Verified 07/31/15 09:32 Home Medications Medication Instructions Recorded Confirmed Last Taken Type Albuterol Sulfate [Ventolin HFA] 2 puff IH Q4H PRN #2 pump 10/13/16 03/01/17 Unknown Rx Ipratropium/Albuterol Sulfate 1 ampul IH TID #30 ampul.neb 11/01/16 03/01/17 Unknown Rx [Duoneb 0.5 mg-3 mg/3 ml Soln] ALPRAZolam [Xanax TAB] 0.25 mg PO Q8H PRN #30 tablet 12/15/16 03/01/17 Unknown Rx Benztropine [Cogentin] 1 mg PO BID #30 tablet 12/15/16 03/01/17 Unknown Rx Divalproex ER [Depakote ER] 500 mg PO QHS #30 tablet 12/15/16 03/01/17 Unknown Rx Ipratropium [Atrovent NEB] 0.5 mg IH Q6HRT PRN #90 nebu 12/15/16 03/01/17 Unknown Rx Nicotine [Habitrol] 21 mg TD QDAY #10 patch 12/15/16 03/01/17 Unknown Rx Tiotropium [Spiriva] 1 puff IH Q24HRT #30 cap 12/15/16 03/01/17 Unknown Rx levETIRAcetam [Keppra TAB] 500 mg PO BID #60 tablet 12/15/16 03/01/17 Unknown Rx oxyCODONE /ACETAMINOPHEN [Percocet 1 tab PO Q6H PRN #20 tablet 12/15/16 Unknown Rx 5/325 mg] predniSONE [Deltasone] 5 mg PO QDAY #14 tablet 12/15/16 03/01/17 Unknown Rx predniSONE [Deltasone] 10 mg PO .TAPER #48 tab 12/15/16 03/01/17 Unknown Rx risperiDONE [RisperDAL] 3 mg PO QAM #30 tablet 12/15/16 03/01/17 Unknown Rx risperiDONE [RisperDAL] 3 mg PO QHS #30 tablet 12/15/16 03/01/17 Unknown Rx Active Meds: Active Medications Acetaminophen (Tylenol) 650 mg PO Q4H PRN PRN Reason: Pain MILD(1-3)/Fever >100.5/JIMENES Albuterol/Ipratropium (Duoneb 0.5 Mg-3 Mg/3 Ml Soln) 1 ampul IH Q6HRT [facility] Last Admin: 03/02/17 09:00 Dose: 1 ampul Alprazolam (Xanax) 0.25 mg PO Q8H PRN PRN Reason: Anxiety Benztropine Mesylate (Cogentin) 1 mg PO BID [facility] Last Admin: 03/02/17 10:28 Dose: 1 mg Bisacodyl (Dulcolax) 10 mg MO QDAY PRN PRN Reason: Constipation unrelieved by MOM Budesonide (Pulmicort) 0.5 mg IH Q12HRT [facility] Last Admin: 03/02/17 09:00 Dose: 0.5 mg Dextrose (D50w (25gm)) 50 ml IV PRN PRN PRN Reason: Hypoglycemia Divalproex Sodium (Depakote Er) 500 mg PO QHS [facility] Last Admin: 03/02/17 00:47 Dose: 500 mg Heparin Sodium (Porcine) (Heparin) 5,000 unit SUB-Q Q12HR [facility] Last Admin: 03/02/17 10:28 Dose: Not Given Sodium Chloride (Nacl 0.9% 1000 Ml) 1,000 mls @ 100 mls/hr IV [facility] [place] Levetiracetam (Keppra) 500 mg PO BID [facility] Last Admin: 03/02/17 10:28 Dose: 500 mg Lorazepam (Ativan) 2 mg IV Q6HR PRN PRN Reason: Agitation Last Admin: 03/01/17 16:39 Dose: 2 mg Magnesium Hydroxide (Milk Of Magnesia) 30 ml PO Q4H PRN PRN Reason: Constipation Methylprednisolone Sodium Succinate (Solu-Medrol) 40 mg IV Q12H [facility] Last Admin: 03/02/17 08:00 Dose: Not Given Nicotine (Habitrol) 21 mg TD QDAY [facility] Last Admin: 03/02/17 10:28 Dose: 21 mg Ondansetron HCl (Zofran) 4 mg IV Q8H PRN PRN Reason: N/V unrelieved by Reglan Risperidone (Risperdal) 3 mg PO QAM [facility] Last Admin: 03/02/17 10:28 Dose: 3 mg Risperidone (Risperdal) 3 mg PO QHS [facility] Last Admin: 03/02/17 00:47 Dose: 3 mg Past psychiatric history - Past Medical History Past Medical History: COPD - past Psychiatric treatment and history Psych: Schizophrenia psychiatric treatment history: states most recent meds are haldol and loxitane and cogentin - Social History Social history: other (homeless) Mental Status Exam - Vital signs Last Vital Signs Temp 97.6 F 03/02/17 08:00 Pulse 120 H 03/02/17 09:10 Resp 20 03/02/17 09:10 BP 123/72 03/02/17 08:00 Pulse Ox 95 03/02/17 09:00 - Exam Orientation: time, place, person Affect: anxious Mood: anxious Thought content: delusions Thought Process: Loose Associations Perceptions: auditory Speech: pressured Concentration: distractible Motor activity: restless Level of consciousness: alert Memory: Intact Interaction: cooperative Results Result Diagrams: 03/01/17 00:36 03/01/17 09:31 All other labs normal. Assessment and Plan Assessment and plan: Impression: Schizophrenia-likely baseline functioning. Recommendation: Restart most recent medication. It is likely the patient is accurate in his report of most recent medication, but this is unable to be confirmed Continue ordered medication of Risperdal 3mg bid for schizophrenia and cogentin 1mg bid for EPS prevention.
[2017-03-03] MEDS: DUONEB 0.5 MG-3 MG/3 ML SOLN IH SCH ×4 (02:28→20:26)
[2017-03-03 06:44] LABS: ISTAT Base Excess 2; ISTAT HCO3 29.6; ISTAT PCO2 66.7 (35-45); ISTAT PH 7.255 (7.35-7.45); ISTAT PO2 237 (80-105); ISTAT SO2 100; ISTAT TCO2 32
[2017-03-03] MEDS: PULMICORT IH SCH ×3 (08:32→20:26)
[2017-03-03] MEDS: COGENTIN PO SCH ×2 (09:22→21:10)
[2017-03-03] MEDS: KEPPRA PO SCH ×2 (09:22→21:10)
[2017-03-03] MEDS: HEPARIN SUB-Q SCH ×2 (09:22→21:10)
[2017-03-03] MEDS: RisperDAL PO SCH ×2 (09:22→21:10)
[2017-03-03] MEDS: HABITROL TD SCH (09:22)
--- NOTE | 2017-03-03 10:34 | Progress Note ---
Assessment and Plan Assessment and plan: Acute on chronic respiratory failure due to COPD exacerbation. He is on supplemental Oxygen at 2 L/min with O2 sat of 97% COPD exacerbation. He feels better. Less shortness of breath. Solu-Medrol IV, DuoNeb. Supplemental Oxygen, now at 2 l/min . Hyponatremia. Was 121 on admission, most recent, 130. Continue Normal saline. For repeat sodium level today. Nephrology following. Hypomagnesemia. Replaced. Hypertension. Blood Pressure stable. Most recent blood pressure 130/81 Schizophrenia. Continue Risperdal Seizure disorder on Keppra DVT prophylaxis with Lovenox CODE STATUS History Interval history: Less shortness of breath, No chest pain, less cough Hospitalist Physical - Physical exam Narrative exam: Gen appearance: Not in acute distress, HEENT: Normocephalic, atraumatic Lungs : Bilateral rhonchi, wheezing Heart :S1-S2 regular, no murmurs, rubs or gallop Abdomen: soft, non tender, non-distended,normal bowel sounds Extremities:no edema no clubbing or cyanosis, Neuro: Awake, alert, oriented 3, no focal neurological signs Psych:calm, has schizophrenia - Constitutional Vitals: Temp Pulse Resp BP Pulse Ox 98.3 F 97 H 20 130/81 97 03/03/17 07:00 03/03/17 07:00 03/03/17 07:00 03/03/17 07:00 03/03/17 08:38 Results - Labs CBC & Chem 7: 03/01/17 00:36 03/01/17 09:31 Labs: Laboratory Last Values WBC 12.6 K/mm3 (4.5-11.0) H 03/01/17 00:36 RBC 3.74 M/mm3 (3.65-5.03) 03/01/17 00:36 Hgb 11.3 gm/dl (11.8-15.2) L 03/01/17 00:36 Hct 33.1 % (35.5-45.6) L 03/01/17 00:36 MCV 88 fl (84-94) 03/01/17 00:36 MCH 30 pg (28-32) 03/01/17 00:36 MCHC 34 % (32-34) 03/01/17 00:36 RDW 12.9 % (13.2-15.2) L 03/01/17 00:36 Plt Count 260 K/mm3 (140-440) 03/01/17 00:36 Add Manual Diff Complete 03/01/17 00:36 Total Counted 100 03/01/17 00:36 Seg Neutrophils % [employer] Feeder 03/01/17 00:36 Seg Neuts % (Manual) 12.0 % (40.0-70.0) L 03/01/17 00:36 Band Neutrophils % 84.0 % 03/01/17 00:36 Lymphocytes % (Manual) 4.0 % (13.4-35.0) L 03/01/17 00:36 Reactive Lymphs % (Man) 0 % 03/01/17 00:36 Monocytes % (Manual) 0 % (0.0-7.3) 03/01/17 00:36 Eosinophils % (Manual) 0 % (0.0-4.3) 03/01/17 00:36 Basophils % (Manual) 0 % (0.0-1.8) 03/01/17 00:36 Metamyelocytes % 0 % 03/01/17 00:36 Myelocytes % 0 % 03/01/17 00:36 Promyelocytes % 0 % 03/01/17 00:36 Blast Cells % 0 % 03/01/17 00:36 Nucleated RBC % Not Reportable 03/01/17 00:36 Seg Neutrophils # Man 1.5 K/mm3 (1.8-7.7) L 03/01/17 00:36 Band Neutrophils # 10.6 K/mm3 03/01/17 00:36 Lymphocytes # (Manual) 0.5 K/mm3 (1.2-5.4) L 03/01/17 00:36 Abs React Lymphs (Man) 0.0 K/mm3 03/01/17 00:36 Monocytes # (Manual) 0.0 K/mm3 (0.0-0.8) 03/01/17 00:36 Eosinophils # (Manual) 0.0 K/mm3 (0.0-0.4) 03/01/17 00:36 Basophils # (Manual) 0.0 K/mm3 (0.0-0.1) 03/01/17 00:36 Metamyelocytes # 0.0 K/mm3 03/01/17 00:36 Myelocytes # 0.0 K/mm3 03/01/17 00:36 Promyelocytes # 0.0 K/mm3 03/01/17 00:36 Blast Cells # 0.0 K/mm3 03/01/17 00:36 WBC Morphology Not Reportable 03/01/17 00:36 Hypersegmented Neuts Not Reportable 03/01/17 00:36 Hyposegmented Neuts Not Reportable 03/01/17 00:36 Hypogranular Neuts Not Reportable 03/01/17 00:36 Smudge Cells Not Reportable 03/01/17 00:36 Toxic Granulation Not Reportable 03/01/17 00:36 Toxic Vacuolation Not Reportable 03/01/17 00:36 Dohle Bodies Not Reportable 03/01/17 00:36 Pelger-Huet Anomaly Not Reportable 03/01/17 00:36 Brooks Rods Not Reportable 03/01/17 00:36 Platelet Estimate Consistent w auto 03/01/17 00:36 Clumped Platelets Not Reportable 03/01/17 00:36 Plt Clumps, EDTA Not Reportable 03/01/17 00:36 Large Platelets Not Reportable 03/01/17 00:36 Giant Platelets Not Reportable 03/01/17 00:36 Platelet Satelliting Not Reportable 03/01/17 00:36 Plt Morphology Comment Not Reportable 03/01/17 00:36 RBC Morphology Not Reportable 03/01/17 00:36 Dimorphic RBCs Not Reportable 03/01/17 00:36 Polychromasia Not Reportable 03/01/17 00:36 Hypochromasia Not Reportable 03/01/17 00:36 Poikilocytosis Not Reportable 03/01/17 00:36 Anisocytosis 1+ 03/01/17 00:36 Microcytosis Not Reportable 03/01/17 00:36 Macrocytosis Not Reportable 03/01/17 00:36 Spherocytes Not Reportable 03/01/17 00:36 Pappenheimer Bodies Not Reportable 03/01/17 00:36 Sickle Cells Not Reportable 03/01/17 00:36 Target Cells Not Reportable 03/01/17 00:36 Tear Drop Cells Not Reportable 03/01/17 00:36 Ovalocytes Not Reportable 03/01/17 00:36 Helmet Cells Not Reportable 03/01/17 00:36 Garcia[place] Bodies Not Reportable 03/01/17 00:36 [place] Rings Not Reportable 03/01/17 00:36 [place] Cells Not Reportable 03/01/17 00:36 Bite Cells Not Reportable 03/01/17 00:36 Crenated Cell Not Reportable 03/01/17 00:36 Elliptocytes Not Reportable 03/01/17 00:36 Acanthocytes (Spur) Not Reportable 03/01/17 00:36 Rouleaux Not Reportable 03/01/17 00:36 Hemoglobin C Crystals Not Reportable 03/01/17 00:36 Schistocytes Not Reportable 03/01/17 00:36 Malaria parasites Not Reportable 03/01/17 00:36 Yogi Bodies Not Reportable 03/01/17 00:36 Hem Pathologist Commnt No 03/01/17 00:36 PT 13.2 Sec. (12.2-14.9) 03/01/17 00:36 INR 1.01 (0.87-1.13) 03/01/17 00:36 APTT 30.8 Sec. (24.2-36.6) 03/01/17 00:36 POC ABG pH 7.255 (7.35-7.45) L 03/01/17 00:25 POC ABG pCO2 66.7 (35-45) H 03/01/17 00:25 POC ABG pO2 237 (80-105) H 03/01/17 00:25 POC ABG HCO3 29.6 03/01/17 00:25 POC ABG Total CO2 32 03/01/17 00:25 POC ABG O2 Sat 100 03/01/17 00:25 POC ABG Base Excess 2 03/01/17 00:25 FiO2 28 % 03/01/17 00:25 Sodium 130 mmol/L (137-145) L D 03/01/17 09:31 Potassium 4.3 mmol/L (3.6-5.0) 03/01/17 00:36 Chloride 82.1 mmol/L (98-107) L 03/01/17 00:36 Carbon Dioxide 28 mmol/L (22-30) 03/01/17 00:36 Anion Gap 15 mmol/L 03/01/17 00:36 BUN 12 mg/dL (9-20) 03/01/17 00:36 Creatinine 0.6 mg/dL (0.8-1.5) L 03/01/17 00:36 Estimated GFR > 60 ml/min 03/01/17 00:36 BUN/Creatinine Ratio 20.00 % 03/01/17 00:36 Glucose 236 mg/dL (75-100) H 03/01/17 00:36 Osmolality 254 Mosm/kg 03/01/17 04:03 Lactic Acid 1.00 mmol/L (0.7-2.0) 03/01/17 00:36 Uric Acid 4.4 mg/dL (3.5-7.6) 03/01/17 04:03 Calcium 8.3 mg/dL (8.4-10.2) L 03/01/17 00:36 Magnesium 1.60 mg/dL (1.7-2.3) L 03/01/17 00:36 Total Bilirubin 0.60 mg/dL (0.1-1.2) 03/01/17 00:36 Direct Bilirubin < 0.2 mg/dL (0-0.2) 03/01/17 00:36 Indirect Bilirubin 0.4 mg/dL 03/01/17 00:36 AST 21 units/L (5-40) 03/01/17 00:36 ALT 21 units/L (7-56) 03/01/17 00:36 Alkaline Phosphatase 56 units/L (35-129) 03/01/17 00:36 Ammonia 35.0 umol/L (25-60) 03/01/17 00:36 Troponin T < 0.010 ng/mL (0.00-0.029) 03/01/17 00:36 NT-Pro-B Natriuret Pep 157.1 pg/mL (0-900) 03/01/17 00:36 Total Protein 5.0 g/dL (6.3-8.2) L 03/01/17 00:36 Albumin 3.3 g/dL (3.9-5) L 03/01/17 00:36 Albumin/Globulin Ratio 1.9 % 03/01/17 00:36 TSH 0.433 mlU/mL (0.270-4.200) 03/01/17 04:03 Salicylates < 0.3 mg/dL (2.8-20.0) L 03/01/17 00:36 Urine Opiates Screen Presumptive negative 03/01/17 00:07 Urine Methadone Screen Presumptive negative 03/01/17 00:07 Acetaminophen < 15.0 ug/mL (10.0-30.0) 03/01/17 00:36 Ur Barbiturates Screen Presumptive negative 03/01/17 00:07 Ur Phencyclidine Scrn Presumptive negative 03/01/17 00:07 Ur Amphetamines Screen Presumptive negative 03/01/17 00:07 U Benzodiazepines Scrn Presumptive negative 03/01/17 00:07 Urine Cocaine Screen Presumptive negative 03/01/17 00:07 U Marijuana (THC) Screen Presumptive negative 03/01/17 00:07 Drugs of Abuse Note Disclamer 03/01/17 00:07 Plasma/Serum Alcohol < 0.01 gm% (0-0.07) 03/01/17 00:36
--- NOTE | 2017-03-03 13:20 | Progress Note ---
Assessment and Plan Impression: * Hypovolemic hyponatremia * COPD * Hx of seizure disorder * Psychiatric d/o * schizophrenia Plan: * dialy lytes * psy evaluation * free h20 restriction * Cont NS for hydration * Steroids and nebs per primary team Subjective Date of service: 03/03/17 Principal diagnosis: hyponatremia Interval history: resting in bed today Objective - Exam Narrative Exam: General appearance: well-developed, well-nourished EENT: ATNC Respiratory: Present: Clear to Ascultation Cardiology: regular, S1S2 Gastrointestinal: no tenderness, no distended Psychiatric: cooperative - Vital Signs Vital signs: Vital Signs - 12hr 03/03/17 03/03/17 03/03/17 02:28 02:39 07:00 Temperature 98.3 F Pulse Rate [ 117 H 120 H Anterior Bilateral Throughout] Pulse Rate [ 97 H Right] Respiratory 20 Rate Respiratory 17 18 Rate [Anterior Bilateral Throughout] Blood Pressure 130/81 [Left Arm] O2 Sat by Pulse 100 Oximetry 03/03/17 03/03/17 03/03/17 08:38 13:00 13:17 Temperature Pulse Rate [ 100 H 100 H Anterior Bilateral Throughout] Pulse Rate [ Right] Respiratory Rate Respiratory 22 22 Rate [Anterior Bilateral Throughout] Blood Pressure [Left Arm] O2 Sat by Pulse 97 Oximetry - Lab 03/01/17 00:36 03/01/17 09:31 Most recent lab results Calcium 8.3 mg/dL (8.4-10.2) L 03/01/17 00:36 Magnesium 1.60 mg/dL (1.7-2.3) L 03/01/17 00:36
[2017-03-04] MEDS: DUONEB 0.5 MG-3 MG/3 ML SOLN IH SCH ×3 (02:02→13:42)
[2017-03-04] MEDS: PULMICORT IH SCH (08:03)
[2017-03-04 09:04] LABS: Basophils % (Auto) 0.3 % (0.0-1.8); Eosinophils % (Auto) 0.1 % (0.0-4.3); Hemoglobin 11.7 gm/dl (11.8-15.2); Mean Corpuscular HGB Conc 33 % (32-34); Mean Corpuscular Hemoglobin 29 pg (28-32); Mean Corpuscular Volume 89 fl (84-94); Platelet Count 298 K/mm3 (140-440); Red Blood Count 4.04 M/mm3 (3.65-5.03); Red Cell Distribution Width 13.6 % (13.2-15.2); White Blood Count 9.1 K/mm3 (4.5-11.0)
[2017-03-04 09:15] LABS: Anion Gap 16 mmol/L; Blood Urea Nitrogen 7 mg/dL (9-20); Calcium 8.8 mg/dL (8.4-10.2); Carbon Dioxide 33 mmol/L (22-30); Chloride 94.1 mmol/L (98-107); Glucose 175 mg/dL (75-100); Potassium 4.2 mmol/L (3.6-5.0); Sodium 139 mmol/L (137-145)
--- NOTE | 2017-03-04 10:14 | Discharge Summary ---
Providers - Providers Date of Admission: 03/01/17 07:19 Date of discharge: 03/04/17 Attending physician: VELIA GARCIA 03/01/17 16:10 psychiatry consult [Consult to Mental Health] [CONS] Routine Reason For Exam: HISTORY OF MENTAL ILLNESS Place consult to:: SUSAN Notified:: SUSAN Phone number called:: [phone] Was contact made?: Yes If yes, spoke with:: SUSAN Time called:: 16:14 Comment:: RAMON MAYBERRY Primary care physician: THE[employer] MANAGER Hospitalization Condition: Fair Disposition: DISCHARGED TO HOME OR SELFCARE Exam - Constitutional Vitals: Temp Pulse Resp BP Pulse Ox 97.8 F 119 H 20 149/85 98 03/04/17 07:00 03/04/17 08:21 03/04/17 08:21 03/04/17 07:00 03/04/17 08:06 Plan Activity: no restrictions Diet: renal Additional Instructions: 1.Follow up with PCP in 1 week. 2.Continue routine hemodialysis as scheduled Follow up with: PRIMARY CARE, [Primary Care Provider] - 3-5 Days Prescriptions: Prednisone [predniSONE 10 mg (6-Day Pack, 21 Tabs)] 10 mg PO .TAPER #1 tab.ds.pk
--- NOTE | 2017-03-04 10:18 | Progress Note ---
Assessment and Plan Impression: * Hypovolemic hyponatremia * COPD * Hx of seizure disorder * Psychiatric d/o * schizophrenia Plan: * Na is 139 and stable * cr is normal * psy evaluation * free h20 restriction * Cont NS for hydration * Steroids and nebs per primary team * will sign off Subjective Date of service: 03/04/17 Principal diagnosis: hyponatremia Interval history: resting in bed today Objective - Exam Narrative Exam: General appearance: well-developed, well-nourished EENT: ATNC Respiratory: Present: Clear to Ascultation Cardiology: regular, S1S2 Gastrointestinal: no tenderness, no distended Psychiatric: cooperative - Vital Signs Vital signs: Vital Signs - 12hr 03/03/17 03/04/17 03/04/17 23:00 02:02 02:14 Temperature 97.9 F Pulse Rate [ 99 H 100 H Anterior Bilateral Throughout] Pulse Rate [ 99 H Right] Respiratory 21 Rate Respiratory 20 18 Rate [Anterior Bilateral Throughout] Blood Pressure 137/77 [Left Arm] O2 Sat by Pulse 98 Oximetry 03/04/17 03/04/17 03/04/17 07:00 08:04 08:06 Temperature 97.8 F Pulse Rate [ 101 H Anterior Bilateral Throughout] Pulse Rate [ 106 H Right] Respiratory 20 Rate Respiratory 24 Rate [Anterior Bilateral Throughout] Blood Pressure 149/85 [Left Arm] O2 Sat by Pulse 100 98 Oximetry 03/04/17 08:21 Temperature Pulse Rate [ 119 H Anterior Bilateral Throughout] Pulse Rate [ Right] Respiratory Rate Respiratory 20 Rate [Anterior Bilateral Throughout] Blood Pressure [Left Arm] O2 Sat by Pulse Oximetry - Lab 03/04/17 08:29 03/04/17 08:29 Most recent lab results Calcium 8.8 mg/dL (8.4-10.2) 03/04/17 08:29 Magnesium 1.60 mg/dL (1.7-2.3) L 03/01/17 00:36
[2017-03-04] MEDS: KEPPRA PO SCH (10:52)
[2017-03-04] MEDS: COGENTIN PO SCH (10:52)
[2017-03-04] MEDS: HABITROL TD SCH (10:53)
[2017-03-04] MEDS: HEPARIN SUB-Q SCH (10:54)
[2017-03-04] MEDS: RisperDAL PO SCH (10:54)
--- NOTE | 2017-03-04 11:39 | Progress Note ---
Subjective - Reason for Consult Consult date: 03/04/17 Reason for consult: Psychiatry Follow-up - Chief Complaint Chief complaint: "Cigarettes,COPD, lung cancer" 56 year old black male seen for psychiatric evaluation. He presented to [facility] for respiratory distress. During a recent admission, he was agitated and destructive to property. Today patient is calm and cooperative during assessment. He stated, "I don't hear the sounds in my ears." He stated that he look forward to going back to "[place]" where he resides. He stated that he have not used "street drugs" since October 2016. Per the RN notes, no aggressive or distress overnight. He denies SI/HI's, AVH's, poor appetite, or sleep disturbance. He denies any side effects from his psy medications. Patient stated that he is working on his decision making. Mental Status Exam - Vital signs Last Vital Signs Temp 97.8 F 03/04/17 07:00 Pulse 119 H 03/04/17 08:21 Resp 20 03/04/17 08:21 BP 149/85 03/04/17 07:00 Pulse Ox 98 03/04/17 08:06 - Exam Narrative exam: MSE: Appearance: cooperative, calm Behavior: good eye contact Speech: regular rate and tone Mood: "I am not depressed" Affect: mood congruent Thought Process: circumstantial Thought Content: denies AVH's Motor Activity: lying in bed Cognition: a/ox 3 Insight: fair Judgment: fair Assessment and Plan Impression: 56 year old black male seen for psychiatric evaluation. He presented to [facility] for respiratory distress. During a recent admission, he was agitated and destructive to property. Today patient is calm and cooperative during assessment. He stated, "I don't hear the sounds in my ears." He stated that he look forward to going back to "[place]" where he resides. He stated that he have not used "street drugs" since October 2016. He denies SI/HIS and AVH's. Recommendation/Plan: Continue ordered medication of Risperdal 3mg bid for schizophrenia and cogentin 1mg bid for EPS prevention.
[2017-03-04 16:20] VITALS: BP 135/83
== END 2017-03-04 16:30 | disposition home or self-care (01) | DRG 70 ==
LOC: ED 22:43 → 3A 03-01 07:19
PROVIDERS: ADMIT Internal Medicine; ATTEND Internal Medicine
PROC: 4A033R1 Measurement of Arterial Saturation, Peripheral, Percutaneous Approach (ICD-10-PCS; principal; 2017-03-01)
DX: G93.49 Other encephalopathy (principal); J96.21 Acute and chronic respiratory failure with hypoxia; E87.1 Hypo-osmolality and hyponatremia; J44.1 Chronic obstructive pulmonary disease with (acute) exacerbation; F20.9 Schizophrenia, unspecified; E44.1 Mild protein-calorie malnutrition; Z68.1 Body mass index [BMI] 19.9 or less, adult; D64.9 Anemia, unspecified; I50.9 Heart failure, unspecified; F17.200 Nicotine dependence, unspecified, uncomplicated; E87.8 Other disorders of electrolyte and fluid balance, not elsewhere classified; E83.42 Hypomagnesemia; I11.0 Hypertensive heart disease with heart failure; I25.10 Atherosclerotic heart disease of native coronary artery without angina pectoris; D72.829 Elevated white blood cell count, unspecified; G40.909 Epilepsy, unspecified, not intractable, without status epilepticus; E87.2 Acidosis; T38.0X5A Adverse effect of glucocorticoids and synthetic analogues, initial encounter; Y92.9 Unspecified place or not applicable; Z59.0 Homelessness
CPT/HCPCS: 36415; 70450; 71010; 72125; 80048; 80074; 80307; 80320; 82140; 82803; 83735; 83880; 83930; 84295; 84443; 84484; 84550; 85007; 85025; 85610; 85730; 93005; 93010; 94640; 94760; 96361; 96365; 96368; 96375; G0480; J1630; J1644; J1953; J2060; J2250; J2920; J2930; J3475; J7030